=== PATIENT | female | born 1965 | race Caucasian/White ===

== ENCOUNTER 2020-05-30 09:03 | Outpatient (REF) | payer MEDICARE, MEDICAID, SELFPAY ==
[2020-05-30 11:03] LABS: MANUAL DIFF FLAG NO
[2020-05-30 11:16] LABS: Basophils Absolute Auto 0.1 X10*3/uL (0.0-0.2); Basophils Percent Auto 0.9 % (0-2); Eosinophils Absolute Auto 0.1 X10*3/uL (0.0-0.4); Hematocrit 40.4 % (37-47); Hemoglobin 12.8 g/dl (12.0-16.0); Imm Gran Abs Auto 0.02 X10*3/uL (0.00-0.03); Imm Gran Pct Auto 0.3 % (0.0-0.4); Lymphocytes Absolute Auto 2.6 X10*3/uL (1.2-4.9); Mean Corpuscular HGB Conc 31.7 g/dl (31.0-35.0); Mean Corpuscular Hemoglobin 26.5 pg (27.0-33.0); Mean Corpuscular Volume 83.6 fL (80-98); Mean Platelet Volume 12.9 fL (9.4-12.3); Monocytes Absolute Auto 0.4 X10*3/uL (0.1-1.2); Monocytes Percent Auto 5.2 % (2-11); Neutrophils Absolute Auto 4.7 X10*3/uL (2.0-8.3); Neutrophils Percent Auto 59.6 % (45-73); Platelet Count 248 X10*3/uL (160-400); Red Blood Count 4.83 X10*6/uL (4.20-5.50); Red Cell Distribution Width 12.9 % (11.0-16.0); White Blood Count 7.9 X10*3/uL (4.8-10.8)
[2020-05-30 11:44] LABS: Alanine Aminotransferase 44 U/L (0-31); Albumin Level 4.3 g/dL (3.5-5.0); Alkaline Phosphatase 93 U/L (39-117); Anion Gap 11 (12-20); Aspartate Amino Transferase 29 U/L (5-31); Bilirubin Total 0.3 mg/dL (0.0-1.0); Blood Urea Nitrogen 8 mg/dL (9-16); Calcium 8.5 mg/dL (8.4-10.2); Carbon Dioxide 31 mmol/L (22-29); Chloride 99 mmol/L (96-108); Cholesterol 168 mg/dL; Estimated Glomerular Filt Rate > 60; Glucose Fasting 124 mg/dL (60-99); HDL Cholesterol 36 mg/dL; LDL Cholesterol Calculated 118 mg/dl; Potassium 3.9 mmol/l (3.3-5.1); Sodium 137 mmol/L (135-145); Total Protein 7.8 g/dL (6.5-8.0); Triglycerides 71 mg/dL
[2020-05-30 11:46] LABS: Estimated Average Glucose 192 mg/dL; Hemoglobin A1c % 8.3 %
[2020-05-30 12:22] LABS: Microalbum/Creatinine Ratio Ur 10.6 ug/mg cr
== END 2020-05-30 09:04 | disposition home or self-care (01) ==
LOC: HO.HMGCLDS 09:03
PROVIDERS: PCP Internal Medicine; Visit Provider Internal Medicine
DX: I10 Essential (primary) hypertension (principal); E11.65 Type 2 diabetes mellitus with hyperglycemia; E78.2 Mixed hyperlipidemia; R80.0 Isolated proteinuria
CPT/HCPCS: 36415; 80053; 80061; 82043; 83036; 85025

== ENCOUNTER 2021-04-06 08:38 | Outpatient (REF) | payer MEDICARE, MEDICAID, SELFPAY ==
[2021-04-06 11:44] LABS: MANUAL DIFF FLAG NO
[2021-04-06 11:55] LABS: Basophils Absolute Auto 0.1 X10*3/uL (0.0-0.2); Basophils Percent Auto 0.9 % (0-2); Eosinophils Absolute Auto 0.1 X10*3/uL (0.0-0.4); Eosinophils Percent Auto 1.3 % (0-4); Hematocrit 40.9 % (37.0-47.0); Hemoglobin 13.1 g/dl (12.0-16.0); Imm Gran Abs Auto 0.02 X10*3/uL (0.00-0.03); Imm Gran Pct Auto 0.2 % (0.0-0.4); Lymphocytes Absolute Auto 2.5 X10*3/uL (1.2-4.9); Lymphocytes Percent Auto 29.8 % (20-40); Mean Corpuscular Hemoglobin 26.9 pg (27.0-33.0); Mean Platelet Volume 12.9 fL (9.4-12.3); Monocytes Absolute Auto 0.4 X10*3/uL (0.1-1.2); Neutrophils Absolute Auto 5.3 x10*3/uL (2.0-8.3); Neutrophils Percent Auto 62.8 % (45-73); Platelet Count 236 X10*3/uL (160-400); Red Blood Count 4.87 X10*6/uL (4.20-5.50); Red Cell Distribution Width 12.9 % (11.0-16.0); White Blood Count 8.5 X10*3/uL (4.8-10.8)
[2021-04-06 12:07] LABS: Alanine Aminotransferase 36 U/L (0-31); Albumin Level 4.4 g/dL (3.5-5.0); Alkaline Phosphatase 86 U/L (39-117); Anion Gap 15 (12-20); Aspartate Amino Transferase 29 U/L (5-31); Bilirubin Total 0.7 mg/dL (0.0-1.0); Blood Urea Nitrogen 9 mg/dL (9-16); Calcium 9.1 mg/dL (8.4-10.2); Carbon Dioxide 27 mmol/L (22-29); Chloride 101 mmol/L (96-108); Cholesterol 146 mg/dL; Estimated Glomerular Filt Rate > 60; Glucose Random 118 mg/dL (60-115); HDL Cholesterol 35 mg/dL; LDL Cholesterol Calculated 90 mg/dl; Potassium 4.2 mmol/L (3.3-5.1); Sodium 139 mmol/L (135-145); Total Protein 8.2 g/dL (6.5-8.0); Triglycerides 106 mg/dL
[2021-04-06 12:14] LABS: Estimated Average Glucose 194 mg/dL; Hemoglobin A1c % 8.4 %
[2021-04-06 12:44] LABS: Creatinine Urine 178.23 mg/dL; Microalbum/Creatinine Ratio Ur 11.7 ug/mg cr
== END 2021-04-06 08:39 | disposition home or self-care (01) ==
LOC: HO.HMGCLDS 08:38
PROVIDERS: PCP Internal Medicine; Visit Provider Internal Medicine
DX: E11.9 Type 2 diabetes mellitus without complications (principal); E78.00 Pure hypercholesterolemia, unspecified; I10 Essential (primary) hypertension; J30.89 Other allergic rhinitis; R80.0 Isolated proteinuria
CPT/HCPCS: 36415; 80053; 80061; 82043; 83036; 85025

== ENCOUNTER 2021-07-14 08:28 | Outpatient (REF) | payer MEDICARE, MEDICAID, SELFPAY ==
[2021-07-14 11:57] LABS: Estimated Average Glucose 209 mg/dL; Hemoglobin A1c % 8.9 %
[2021-07-14 12:17] LABS: Thyroid Stimulating Hormone 0.87 uIU/mL (0.32-4.0)
[2021-07-14 12:28] LABS: Alanine Aminotransferase 26 U/L (0-31); Albumin Level 4.1 g/dL (3.5-5.0); Alkaline Phosphatase 91 U/L (39-117); Anion Gap 14 (12-20); Aspartate Amino Transferase 19 U/L (5-31); Bilirubin Total 0.6 mg/dL (0.0-1.0); Blood Urea Nitrogen 8 mg/dL (9-16); Calcium 9.2 mg/dL (8.4-10.2); Carbon Dioxide 28 mmol/L (22-29); Chloride 101 mmol/L (96-108); Cholesterol 129 mg/dL; Estimated Glomerular Filt Rate > 60; Glucose Random 152 mg/dL (60-115); HDL Cholesterol 31 mg/dL; LDL Cholesterol Calculated 82 mg/dl; Potassium 4.2 mmol/L (3.3-5.1); Sodium 139 mmol/L (135-145); Total Protein 7.8 g/dL (6.5-8.0); Triglycerides 81 mg/dL
== END 2021-07-14 08:29 | disposition home or self-care (01) ==
LOC: HO.HMGCLDS 08:28
PROVIDERS: Visit Provider Internal Medicine
DX: E11.9 Type 2 diabetes mellitus without complications (principal); E78.00 Pure hypercholesterolemia, unspecified; I10 Essential (primary) hypertension; L65.0 Telogen effluvium
CPT/HCPCS: 36415; 80053; 80061; 83036; 84443

== ENCOUNTER 2021-10-12 10:50 | Outpatient (REF) | payer MEDICARE, MEDICAID, SELFPAY ==
[2021-10-12 13:59] LABS: Estimated Average Glucose 206 mg/dL; Hemoglobin A1c % 8.8 %
[2021-10-12 14:03] LABS: Alanine Aminotransferase 34 U/L (0-31); Albumin Level 4.2 g/dL (3.5-5.0); Alkaline Phosphatase 96 U/L (39-117); Anion Gap 13 (12-20); Aspartate Amino Transferase 21 U/L (5-31); Bilirubin Total 0.6 mg/dL (0.0-1.0); Blood Urea Nitrogen 8 mg/dL (9-16); Calcium 9.3 mg/dL (8.4-10.2); Carbon Dioxide 27 mmol/L (22-29); Chloride 102 mmol/L (96-108); Cholesterol 158 mg/dL; Estimated Glomerular Filt Rate > 60; Glucose Random 165 mg/dL (60-115); HDL Cholesterol 34 mg/dL; LDL Cholesterol Calculated 109 mg/dl; Potassium 4.1 mmol/L (3.3-5.1); Sodium 138 mmol/L (135-145); Triglycerides 78 mg/dL
[2021-10-12 14:22] LABS: Thyroid Stimulating Hormone 0.55 uIU/mL (0.32-4.0)
== END 2021-10-12 10:51 | disposition home or self-care (01) ==
LOC: HO.HMGCLDS 10:50
PROVIDERS: Visit Provider Internal Medicine
DX: Z00.00 Encounter for general adult medical examination without abnormal findings (principal); E03.9 Hypothyroidism, unspecified; E11.65 Type 2 diabetes mellitus with hyperglycemia
CPT/HCPCS: 36415; 80053; 80061; 83036; 84443

== ENCOUNTER 2022-02-11 10:28 | Outpatient (REF) | payer MEDICARE, SELFPAY | END 2022-02-11 10:29 | disposition home or self-care (01) | LOC: HO.10HDL 10:28 | PROVIDERS: Visit Provider Otolaryngology | DX: J30.89 Other allergic rhinitis (principal) | CPT/HCPCS: 36415; 82785; 86003 ==

== ENCOUNTER 2022-05-06 08:29 | Outpatient (REF) | payer MEDICARE, MEDICAID, SELFPAY ==
[2022-05-06 09:23] LABS: Estimated Average Glucose 197 mg/dL; Hemoglobin A1c % 8.5 %
[2022-05-06 09:43] LABS: Alanine Aminotransferase 29 U/L (0-31); Albumin Level 4.4 g/dL (3.5-5.0); Alkaline Phosphatase 97 U/L (39-117); Anion Gap 14 (12-20); Aspartate Amino Transferase 20 U/L (5-31); Bilirubin Total 0.6 mg/dL (0.0-1.0); Blood Urea Nitrogen 9 mg/dL (9-16); Calcium 9.6 mg/dL (8.4-10.2); Carbon Dioxide 28 mmol/L (22-29); Chloride 101 mmol/L (96-108); Cholesterol 200 mg/dL; Estimated Glomerular Filt Rate > 60; Glucose Random 138 mg/dL (60-115); HDL Cholesterol 35 mg/dL; LDL Cholesterol Calculated 141 mg/dl; Potassium 4.8 mmol/L (3.3-5.1); Sodium 138 mmol/L (135-145); Total Protein 8.1 g/dL (6.5-8.0); Triglycerides 122 mg/dL
== END 2022-05-06 08:30 | disposition home or self-care (01) ==
LOC: HO.LAB 08:29
PROVIDERS: PCP Internal Medicine; Visit Provider Internal Medicine
DX: E11.65 Type 2 diabetes mellitus with hyperglycemia (principal); E78.00 Pure hypercholesterolemia, unspecified; I10 Essential (primary) hypertension; R80.0 Isolated proteinuria
CPT/HCPCS: 36415; 80053; 80061; 83036

== ENCOUNTER → 2024-08-06 10:15 | Outpatient (BNVA) | payer MEDICARE, MEDICAID, SELFPAY | PROVIDERS: PCP Physician Assistant; Visit Provider Physician Assistant | DX: E11.65 Type 2 diabetes mellitus with hyperglycemia (principal); I10 Essential (primary) hypertension; Z87.892 Personal history of anaphylaxis | CPT/HCPCS: 83036; 99202 ==

== ENCOUNTER 2024-08-06 10:18 | Outpatient (AMB) | payer MEDICARE, MEDICAID, SELFPAY ==
--- NOTE | 2024-08-06 10:16 | A.OFFPC_ITS ---
Vital Signs 08/06/24 10:21 Height 5 ft 1 in Weight 140 lb 4 oz BMI 26.5 BP 130/68 Blood Pressure Location Lt brachial Position Sitting Pulse 80 Pulse Source Pulse Oximeter Temp 97.3 F Temp Source Temporal Artery Scan Pulse Oximetry (%) 97 Oxygen Delivery Method Room Air Intake Visit Reasons: New Patient Intake Note: Patient is a new patient establishing care for hypertension and type 2 diabetes. They are transferring care from Dr. Cheryle Reynolds MD, at [facility] in [place]. Medical records have been received today. The patient saw their previous doctor only twice and has not seen a primary care provider for approximately eight months. Aging Room Hand Required: Yes Aging Room Hand Language: Workers Compensation Legal Secretary Name: used tablet-ID #-[id number] Accompanied by: Self / Same As Patient Allergies apple [APPLE] Allergy (Severe, Verified 08/06/24 10:38) ANAPHYLAXIS Penicillins [PENICILLINS] Allergy (Intermediate, Verified 08/06/24 10:38) HIVES Nuts Allergy (Intermediate, Uncoded 08/06/24 10:38) Itchy throat. Medication List - Last Reconciled 08/06/24 by David Hoang PA-C blood sugar diagnostic (OneTouch Ultra Test strips) As directed calcipotriene 0.005% topical calcipotriene-betamethasone 0.005-0.064 % (Enstilar) topical DAILY PRN clobetasol 0.05% topical epinephrine 0.3 mg IM Q10M PRN fluticasone propionate 50 mcg/actuation 1 spray intranasal DAILY glimepiride mg PO DAILY ketoconazole 2% topical lancets (OneTouch Delica Plus Lancet) As directed loratadine (Claritin) 10 mg PO DAILY losartan mg PO DAILY metformin mg PO BID pimecrolimus 1% appl topical BID Tobacco use date assessed: 08/06/24 HPI New Patient HPI Details Patient is a 59-year-old female here today for a new patient visit. Patient is Liberian-speaking only thus use a offsite spanish interpreter/translator. [facility] PCP [facility] at the [facility]. Patient has a past medical history significant for type 2 diabetes, hypertension, allergies. .. Type 2 diabetes: Patient's type 2 diabetes has not been the best controlled. Today's A1c at 8.6. She continues on metformin a 1000 b.i.d.. She does check her sugars and does report after she eats her sugars are nearly 300. PLAN: Will add Ozempic 0.25 mg weekly for better glycemic control and cardiovascular risk reduction. .. Hypertension: Blood pressure acceptable today in office. She continues on losartan 50 mg daily with good effect. Laboratory Tests 10/12/21 05/06/22 11:00 08:46 Hemoglobin A1c % 8.8 8.5 [facility] Medical History Hypertension Type II diabetes mellitus Family History (Updated 08/06/24 @ 10:52 by David Hoang PA-C) Sister Colon cancer Social History (Updated 08/06/24 @ 10:54 by David Hoang PA-C) Alcohol intake: never Patient Tobacco Use Status: Never used Tobacco Current occupational status: disabled Review of Systems Const Denies headache(s) Eyes Denies loss of vision ENT Denies vertigo, Denies dizziness, Denies headache(s) and Denies sore throat Card Denies chest pain, Denies leg edema and Denies lightheadedness Resp Denies cough, Denies hemoptysis and Denies wheezing GI Denies abdominal pain, Denies melena, Denies constipation, Denies diarrhea and Denies vomiting Denies urinary frequency, Denies dysuria and Denies urinary urgency Musc Denies arthralgias, Denies joint swelling, Denies numbness and Denies tingling Neuro Denies Abnormal speech present, Denies behavioral changes, Denies vertigo, Denies dizziness, Denies headache(s), Denies loss of vision, Denies memory loss, Denies numbness and Denies tingling Psych Denies anxiety, Denies behavioral changes, Denies depression, Denies memory loss and Denies panic attacks Phill/Lymph Denies easy bleeding and Denies easy bruising Aller/Immun Denies wheezing Physical exam (Primary Care) Vital Signs: Last Vital Signs Temp 97.3 F 08/06/24 10:21 Pulse 80 08/06/24 10:21 BP 130/68 08/06/24 10:21 Pulse Ox 97 08/06/24 10:21 Oxygen Delivery Method Room Air 08/06/24 10:21 BMI result Body Mass Index 26.5 Tobacco/Smoking Status: Tobacco use Status Tobacco use date assessed 08/06/24 08/06/24 10:36 Patient Tobacco Use Status Never used Tobacco 08/06/24 10:36 Const General: healthy appearing, no acute distress, alert and awake Nutritional Appearance: well nourished Orientation/consciousness: oriented to person, oriented to place and oriented to time HENMT Ears: TM's normal bilaterally General nose exam: Normal nasal mucous membranes and turbinates present Eyes Conjunctivae: conjunctivae normal Sclerae: sclerae normal Pupils: Equal, round and reactive pupils present Neck Neck: Yes no lymphadenopathy and Yes no JVD Thyroid: Thyroid normal Carotids: no bruits Resp Effort & Inspection: normal respiratory effort and not tachypneic Auscultation: no crackles, no rales, no rhonchi and no wheezes Cardio Rate: regular rate Rhythm: regular rhythm Heart sounds: no murmurs and normal S1 and S2 GI Palpation (GI): Soft to palpation, nontender, no hepatomegaly and no splenomegaly Auscultation: normal bowel sounds Skin General skin exam: no rashes or lesions noted and dry skin Neuro General: oriented to person, oriented to place and oriented to time Cranial nerves: Yes Equal, round and reactive pupils present Speech: No Abnormal speech present Gait exam (Neuro): Normal gait present Motor exam (neuro): no tremor noted Extrem Right upper extremity: full ROM Left upper extremity: full ROM Right lower extremity: full ROM; no edema Left lower extremity: full ROM; no edema Psych Mental Status: mental status grossly normal Speech and movement: Normal speech and movement present Affect: normal affect Attitude: cooperative Thought process: Normal thought process present Results AMB Hemoglobin A1c AMB Hemoglobin A1c 8.6 % Last Edit by DEJON Acuna on 08/06/24 10:50 Coding Level of Care Code New Pt Level 4 (83281) Diagnoses Type 2 diabetes mellitus with hyperglycemia, without long-term current use of insulin E11.65 Diabetes mellitus complication status: with hyperglycemia Diabetes mellitus long term acute care registered nurse insulin use: without skilled nursing use Primary hypertension I10 Hypertension type: primary hypertension History of anaphylaxis Z87.892 Encounter for screening mammogram for malignant neoplasm of breast Z12.31 Breast cancer screening modality: mammogram Cervical cancer screening Z12.4 Assessment & Plan Assessment & Plan (1) Type II diabetes mellitus: Code(s): E11.9 - Type 2 diabetes mellitus without complications Category: Medical Qualifiers: Diabetes mellitus complication status: with hyperglycemia Diabetes mellitus skilled nursing insulin use: without long term acute care registered nurse use Qualified Code(s): E11.65 - Type 2 diabetes mellitus with hyperglycemia Plan: Patient's type 2 diabetes suboptimally controlled. She continues with metformin and glipizide. She is willing to try Ozempic for better glycemic control. Will follow up in 3 months and recheck A1c. (2) Hypertension: Code(s): I10 - Essential (primary) hypertension Category: Medical Qualifiers: Hypertension type: primary hypertension Qualified Code(s): I10 - Essential (primary) hypertension Plan: Patient's blood pressure acceptable today in office. Will continue her current dose of losartan with goal blood pressure to remain below 140/90. (3) History of anaphylaxis: Code(s): Z87.892 - Personal history of anaphylaxis Category: Medical Plan: Patient has a history of anaphylaxis in would like an EpiPen available to her. Her previous EpiPen had . (4) Breast cancer screening: Code(s): Z12.39 - Encounter for other screening for malignant neoplasm of breast Category: Medical Qualifiers: Breast cancer screening modality: mammogram Qualified Code(s): Z12.31 - Encounter for screening mammogram for malignant neoplasm of breast Plan: Willing to get mammogram (5) Cervical cancer screening: Code(s): Z12.4 - Encounter for screening for malignant neoplasm of cervix Category: Medical Plan: Needs up-to-date Pap screening Orders: Orders Complete Blood Count no Diff Today E11.9 - Type 2 diabetes mellitus without complications Lipid Panel Today E11.9 - Type 2 diabetes mellitus without complications MM screening mammo BI Today Z12.31 - Encounter for screening mammogram for malignant neoplasm of breast, Z12.39 - Encounter for other screening for malignant neoplasm of breast Microalbumin, Random (w Creat) Today E11.9 - Type 2 diabetes mellitus without complications Comprehensive [place]. 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 Z12.4 - Encounter for screening for malignant neoplasm of cervix Medications: New glimepiride 1 mg PO DAILY 90 days 90 tabs 1RF E11.9 - Type 2 diabetes mellitus without complications lancets (OneTouch Delica Plus Lancet) testing twice per day per day 100 ea 3RF E11.9 - Type 2 diabetes mellitus without complications semaglutide (Ozempic) 0.25 mg (0.368 mL) subcut QWEEK 4 weeks 3 mL 3RF E11.65 - Type 2 diabetes mellitus with hyperglycemia loratadine (Claritin) 10 mg PO DAILY 90 days 90 tabs 2RF Z87.892 - Personal history of anaphylaxis epinephrine for 2 doses 0.3 mg (0.3 mL) IM Q10M 30 days PRN 2 ea 1RF anaphylaxis Z87.892 - Personal history of anaphylaxis blood pressure monitor As directed 1 ea 0RF E11.9 - Type 2 diabetes mellitus without complications metformin 1,000 mg PO BID 90 days 180 tabs 1RF E11.9 - Type 2 diabetes mellitus without complications losartan 50 mg PO DAILY 90 days 90 tabs 1RF I10 - Essential (primary) hypertension blood sugar diagnostic (SocialThreaderTouch Ultra Test strips) testing twice per day 100 ea 2RF E11.9 - Type 2 diabetes mellitus without complications glimepiride 1 mg PO DAILY 90 days 90 tabs 1RF E11.9 - Type 2 diabetes mellitus without complications metformin 1,000 mg PO BID 90 days 180 tabs 1RF E11.9 - Type 2 diabetes mellitus without complications losartan 50 mg PO DAILY 90 days 90 tabs 1RF I10 - Essential (primary) hypertension
[2024-08-06 10:21] VITALS: BP 130/68; PULSE 80; TEMP 36.3; O2SAT 97; BMI 26.5
--- OUTSIDE RECORDS SUMMARY | 2024-08-06 11:27 | XMS_ITS ---
Author Name [facility] Organization Unknown Care Team Organization Name Specialty Phone Email Start Date End [facility]
--- OUTSIDE RECORDS SUMMARY | 2024-08-06 11:27 | XMS_ITS | Clinical Summary ---
Author Organization [facility] [address] [facility] Address [address] [facility] [place] [address] Phone Care Team Providers Care Internet Specialist Name Role Phone Cheryle Mensah MD Primary Care Prov ider Allergies Active Allergy Reactions Criticality Noted Date Comments Fruit Extracts Anaphylaxis High 05/06/2022 Apples-itching Cherries-itching Penicillins Hives,Itching 05/06/2022 Medications diphenhydrAMIN E (BENADRYL) 50 mg capsule Take 1 capsule (50 mg total) by mouth every 6 (six) hours if needed. Active azelastine (OPTIVAR) 0.05 % ophthalmic solution Administer 1 drop into both eyes 2 (two) times a day. Active OneTouch Ultra Test test strip 1 each by Other route if needed. 10/27/19 24 Active glimepiride (AMARYL) 1 mg tablet Take 1 tablet (1 mg total) by mouth 1 (one) time each day before breakfast. 90 each 1 05/02/20 24 Active losartan (COZAAR) 50 mg tablet Take 1 tablet (50 mg total) by mouth 1 (one) time each day. 90 each 1 05/02/20 24 Active triamcinolone (NASACORT) 55 mcg nasal inhaler Administer 2 sprays into each nostril 1 (one) time each day. 10.8 mL 1 05/02/20 24 Active levocetirizine (XYZAL) 5 mg tablet Take 1 tablet (5 mg total) by mouth 1 (one) time each day in the evening. 90 each 1 05/02/20 24 Active lancets lancets Test twice daily DX E11.9 03/22/20 23 Active blood-glucose meter misc DX?E11.9 03/22/20 23 Active EPINEPHRINE BASE, REFILL, INHL Inject?as directed. Active metFORMIN (GLUCOPHAGE) 1,000 mg tablet TAKE 1 TABLET BY MOUTH TWICE DAILY WITH MEALS 180 tablet 1 07/10/19 25 Active metFORMIN (GLUCOPHAGE) 1,000 mg tablet Take 1 tablet (1,000 mg total) by mouth 2 (two) times a day with meals. 90 each 1 05/02/20 24 025 Discontinued Active Problems Problem Noted Date Diagnosed Date Overweight (BMI 25.0-29.9) 05/31/2023 Hypertension 12/24/2022 Type 2 diabetes mellitus wit hout complication, without long-term current use of insulin 12/24/2022 Immunizations Name Administration Dates Next Due Moderna SARS-CoV-2 COVID-19, mRNA, LNP-S, preservative free 07/16/2021,04/15/2021 Pneumococcal conjugate 20 va lent (Prevnar 20, PCV 20) 2mo and older 02/18/2023 Td Tetanus diptheria (Tdvax) 7yo and older 02/17 Tdap Tetanus diptheria acell ular pertussis (Boostrix; Adacel) 7yo and older 11/05/2021 Surgical History Surgery Date Site/Laterality Comments TUBAL LIGATION PROCEDURE: HISTORICAL TUBAL LIGATION BREAST REDUCTION Bilateral PROCEDURE: [place] BREAST REDUCTION HAND SURGERY 2010 Right PROCEDURE: HISTORICAL HAND SURGERY; COMMENT: work accident Medical History Medical History Date Comments HTN (hypertension) DX:HTN (hyper tension) Type 2 diabetes mellitus wit hout complications (CMS/HCC) DX:Type 2 diabetes mellitus without complications (HCC) Psoriasis DX:Psoriasis Mixed hyperlipidemia DX:Mixed hy perlipidemia Family History Medical History Relation Name Comments No Known Problems Father No Known Problems Mother Colon cancer Sister Ovarian cancer Sister cancer first started in ovaries, per sister negative genetic Uterine cancer Sister Breast cancer Neg Hx Relation Name Status Comments Father Mother Sister Social History Tobacco Use Types Packs/Day Years Used Date Smoking Tobacco: Never Smokeless Tobacco: Never Tobacco Cessation:Counseling Given: Not Answered Alcohol Use Standard Drinks/Week Comments Not Currently 0 (1 standard drink = 0.6 oz pur e alcohol) Comments Unknown Sex and Gender Information Value Date Recorded Sex Assigned at Not on file Legal Sex Female 5:36 AM EST Gender Identity Not on file Sexual Orientation Not on file Obstetrics History Last Filed Vital Signs Vital Sign Reading Time Taken Comments Blood Pressure 135/77 05/02/2024 10:48 AM EST Pulse 86 05/02/2024 10:48 AM EST Temperature 36.1 ??C (97 ??F) 05/02/2024 10:48 AM EST Respiratory Rate 16 05/02/2024 10:48 AM EST Oxygen Saturation 96% 05/02/2024 10:48 AM EST Inhaled Oxygen Concentration - - Weight 64.1 kg (141 lb 6.4 oz) 05/02/2024 10:48 AM EST Height 154.9 cm (5' 1 ) 05/02/2024 10:48 AM EST Body Mass Index 26.72 05/02/2024 10:48 AM EST Plan of Treatment Health Maintenance Due Date Last Done Comments Diabetes: Annual Foot Exam 1975 Diabetes: Annual Retina Eye Exam 1975 Hepatitis B Vaccines (1 of 3 - 19+ 3-dose series) 01/29/1984 Zoster Vaccines (1 of 2) 2015 Colorectal Cancer Screening: Colonoscopy 11/16/2022 Depression Screening 11/16/2022 HIV Screening 11/16/2022 Social Influencers of Health Screening 11/16/2022 Medicare Annual Wellness Visit 05/11/2023 05/11/2022 Diabetes: Blood Sugar Control Test (HGBA1C) 08/19/2023 02/18/2023 Diabetes: Annual GFR (Glomerular Filtration Rate) 12/11/2023 12/10/2022 Hypertension/CHF/CAD Annual BMP Blood Test 12/11/2023 12/10/2022 COVID-19 Vaccine ( season) 2024 07/16/2021, 04/24/2021, 04/15/2021, Additional history exists Influenza Vaccine (#1) 2024 Diabetes: Annual Urine Albumin-Creatinine Ratio (uACR) 02/19/2024 02/18/2023 Breast Cancer Screening 05/19/2025 05/19/2023, 05/07 Cervical Cancer Screening: HPV 05/06/2027 05/06/2022 Cholesterol Screening (Lipid Panel) 12/11/2027 12/10/2022 DTaP,Tdap,and Td Vaccines (3 - Td or Tdap) 11/06/2031 11/05/2021, 02/17/2019 RSV Immunization Patients 60+ Years Old (1 - 1-dose 75+ series) 01/29/2040 Hepatitis C Screening Completed 12/10/2022 Pneumococcal Vaccine: 50+ Years Completed 02/18/2023 Pneumococcal Vaccine: Pediatrics (0 to 5 Years) and At-Risk Patients (6 to 64 Years) Completed 02/18/2023 HIB Vaccines Aged Out No longer eligi ble based on patient's age to complete this topic HPV Vaccines Aged Out No longer eligi ble based on patient's age to complete this topic Hepatitis A Vaccines Aged Out No long er eligible based on patient's age to complete this topic IPV Vaccines Aged Out No longer eligi ble based on patient's age to complete this topic MMR Vaccines Aged Out No longer eligi ble based on patient's age to complete this topic Meningococcal ACWY Vaccine Aged Out N o longer eligible based on patient's age to complete this topic Meningococcal B Vacine Aged Out No lo nger eligible based on patient's age to complete this topic RSV Immunization Patients Under 20 months Aged Out No longer eligible based on patient's age to complete this topic Varicella Vaccines Aged Out No longer eligible based on patient's age to complete this topic Procedures Procedure Name Priority Date/Time Associated Diagnosis Comments SCREENING MAMMOGRAPHY BI 2-VIEW BREAST INC CAD Routine 05/19/2023 9:56 AM EST Encounter for screening mammogram for malignant neoplasm of breast URINE ALBUMIN CREATININE RATIO Routine 02/18/2023 HEMOGLOBIN A1C Routine 02/18/2023 HEPATITIS C SCREENING Routine 12/10/2022 ANNUAL BMP BLOOD TEST Routine 12/10/2022 LIPID PANEL Routine 12/10/2022 HPV Routine 05/06/2022 from Last 3 Months or Most Recently Relevant to Health Maintenance Results * SCREENING MAMMOGRAPHY BI 2-VIEW BREAST INC CAD (05/19/2023 9:56 AM EST) Anatomical Region Laterality Modality Radiographic Esperanza ging 05/07/2022 9:19 AM EST Narrative 05/19/2023 4:22 PM EST This is a summary report. The complete report is available in the patient's medical record. If you cannot access the medical record, please contact the sending organization for a detailed fax or copy. Full field digital screening tomosynthesis mammography, reviewed with CAD and compared to previous. The breast tissue is heterogeneously dense, limiting sensitivity. No suspicious mass, architectural distortion or suspicious calcifications are identified. IMPRESSION: : Dense breast tissue, limiting the sensitivity of mammography. No mammographic evidence of malignancy. BIRADS 1-Negative; N. 5 year breast cancer risk assessment 0.8 % Lifetime breast cancer risk assessment 4.8 % Breast cancer risk category Low (<15%) Procedure Note Giselle Ariza MD - 06/28/2023 This is a summary report. The complete report is available in thepatient's medical record. If you cannot access the medical record, pleasecontact the sending organization for a detailed fax or copy. Full field digital screening tomosynthesis mammography, reviewed with CADand compared to previous. The breast tissue is heterogeneously dense,limiting sensitivity. No suspicious mass, architectural distortion orsuspicious calcifications are identified. IMPRESSION: : Dense breast tissue, limiting the sensitivity of mammography. Nomammographic evidence of malignancy. BIRADS 1-Negative; N. 5 year breast cancer risk assessment 0.8 % Lifetime breast cancer risk assessment 4.8 % Breast cancer risk category Low (<15%) Aleah Patino CNM IMG XR PROCEDURES Final Result * Urine Albumin Creatinine Ratio (02/18/2023) Urine Albumin Creatinine Ratio Abstracted Historical Provider HEALTH MAINTENANCE Final Result * (ABNORMAL) Hemoglobin A1c (02/18/2023) Hemoglobin A1C 9.1(A) <=6.5 % Blood Venous blood specimen / Unknown Result [facility] Provider LAB BLOOD ORDERABLES Ayaka l Result * Annual BMP Blood Test (12/10/2022) [facility] Annual BMP Blood Test Abstracted Result [facility] Provider HEALTH MAINTENANCE Final Result * Hepatitis C Screening (12/10/2022) [facility] Hepatitis C Screening Abstracted Result [facility] Provider HEALTH MAINTENANCE Final Result * (ABNORMAL) Lipid panel (12/10/2022) [facility] LDL/HDL Ratio 4 0 - 4 Triglycerides 90 0 - 150 mg/dL Cholesterol 163 0 - 200 mg/dL HDL 39(A) >=40 mg/dL LDL Cholesterol 106(A) 0 - 100 mg/dL Blood Venous blood specimen / Unknown Result [facility] Provider LAB BLOOD ORDERABLES Ayaka l Result * Cervical Cancer Screening: HPV (05/06/2022) [facility] Cervical Cancer Screening: HPV No interpreta tion,abstr acted Result [facility] Provider HEALTH MAINTENANCE Final Result from Last 3 Months or Most Recently Relevant to Health Maintenance Additional Health Concerns Infection Onset Date Last Indicated ESBL 05/02/2024 05/02/2024 [place] [facility] [place] [id number] MEDICA[place] - [place]ICARE Care Teams Internet Specialist Relationship Specialty Start Date End Date Cherlye Mensah MD [address] [place] [id number] PCP - General Internal Medicine 03/08/22
== END 2024-08-06 11:21 | disposition home or self-care (01) ==
PROVIDERS: PCP Physician Assistant; Visit Provider Physician Assistant
DX: E11.65 Type 2 diabetes mellitus with hyperglycemia (principal); I10 Essential (primary) hypertension; Z87.892 Personal history of anaphylaxis; Z12.31 Encounter for screening mammogram for malignant neoplasm of breast; Z12.4 Encounter for screening for malignant neoplasm of cervix

== ENCOUNTER 2024-08-27 11:26 | Outpatient (REF) | payer MEDICARE, MEDICAID, SELFPAY ==
--- OUTSIDE RECORDS SUMMARY | 2024-08-27 13:48 | XMS_ITS | Clinical Summary ---
Author Organization [facility] [address] [place] [address] Address [address] [facility] [place] [address] Phone Care Team Providers Care Habitat Biologist Name Role Phone Cheryle Mensah MD Primary [...] eyes 2 (two) times a day. Active glimepiride (AMARYL) 1 mg tablet Take [...] MEALS 180 tablet 1 07/10/19 25 Active OneTouch Ultra Test test strip USE TO CHECK BLOOD SUGARS TWO TIMES DAILY 100 strip 5 08/22/19 25 Active OneTouch Ultra Test test strip 1 each by Other route if needed. 10/27/19 24 025 Discontinued Active Problems Problem Noted [...] HISTORICAL TUBAL LIGATION BREAST REDUCTION Bilateral PROCEDURE: [place] BREAST REDUCTION HAND SURGERY 2010 Right PROCEDURE: HISTORICAL HAND SURGERY; COMMENT: work accident Medical History Medical History Date Comments HTN (hypertension) DX:HTN (hyper tension) Type 2 diabetes mellitus wit hout complications DX:Type 2 diabetes mellitus without complications (HCC) [...] 2024 07/16/2021, 04/24/2021, 04/15/2021, Additional history exists Diabetes: Annual Urine Albumin-Creatinine Ratio (uACR) 02/19/2024 02/18/2023 Influenza Vaccine (Season Ended) 2025 Breast Cancer Screening 05/19/2025 05/19/2023, 05/07 Cervical Cancer Screening: HPV 05/06/2027 05/06/2022 Cholesterol Screening (Lipid Panel) 12/11/2027 12/10/2022 DTaP,Tdap,and Td Vaccines (3 - Td or Tdap) 11/06/2031 11/05/2021, 02/17/2019 RSV Immunization Adult Patients (1 - 1-dose 75+ series) 01/29/2040 Hepatitis [...] % Breast cancer risk category Low (<15%) Result [facility] Aleah Patino CNM IMG XR PROCEDURES Final Result * Urine Albumin Creatinine Ratio (02/18/2023) Urine Albumin Creatinine Ratio Abstracted Result [facility] Historical Provider HEALTH MAINTENANCE Final Result * (ABNORMAL) Hemoglobin A1c (02/18/2023) Hemoglobin A1C 9.1(A) <=6.5 % Blood Venous blood specimen / Unknown Result [facility] Historical Provider LAB BLOOD ORDERABLES Yaaka l Result * Annual BMP Blood Test (12/10/2022) Pathologist [facility] Annual BMP Blood Test Abstracted [facility] Provider HEALTH MAINTENANCE Final Result * Hepatitis C Screening (12/10/2022) [facility] Hepatitis C Screening Abstracted [facility] Provider HEALTH MAINTENANCE Final Result * (ABNORMAL) Lipid panel (12/10/2022) [facility] LDL/HDL Ratio 4 0 - 4 Triglycerides 90 0 - 150 mg/dL Cholesterol 163 0 - 200 mg/dL HDL 39(A) >=40 mg/dL LDL Cholesterol 106(A) 0 - 100 mg/dL Blood Venous blood specimen / Unknown [facility] Provider LAB BLOOD ORDERABLES Ayaka l Result * Cervical Cancer Screening: HPV (05/06/2022) [facility] Cervical Cancer Screening: HPV No interpreta tion,abstr acted [facility] Provider HEALTH MAINTENANCE Final Result from Last 3 Months or Most Recently Relevant to Health Maintenance Additional Health Concerns Infection Onset Date Last Indicated ESBL 05/02/2024 05/02/[address] [place] [address] [place]ICA[place] - [place]ARE Care Teams Habitat Biologist Relationship Specialty Start Date End Date Cheryle Mensah MD [address] [place] [id number] PCP - General Internal Medicine 03/08/22
== END 2024-08-27 11:27 | disposition home or self-care (01) ==
LOC: HO.MAMMO 11:26
PROVIDERS: PCP Physician Assistant; Visit Provider Physician Assistant
DX: Z12.31 Encounter for screening mammogram for malignant neoplasm of breast (principal)
CPT/HCPCS: 77063; 77067

== ENCOUNTER → 2024-08-27 11:30 | Outpatient (BNV) | payer MEDICARE, MEDICAID, SELFPAY | PROVIDERS: PCP Physician Assistant; Visit Provider Internal Medicine | DX: Z12.31 Encounter for screening mammogram for malignant neoplasm of breast (principal) | CPT/HCPCS: 77063; 77067 ==

== ENCOUNTER 2024-10-01 09:16 | Outpatient (REF) | payer MEDICARE, MEDICAID, SELFPAY ==
--- NOTE | ~2024-10-01 | US_ITS ---
EXAMINATION: MM DIAGNOSTIC DIGITAL BREAST TOMOSYNTHESIS, LEFT Limited left breast ultrasound. CLINICAL INFORMATION: Call back from screening for focal asymmetry in the upper outer left breast posterior depth. COMPARISON: Mammography: Priors on PACS. TECHNIQUE: Digital breast tomosynthesis is performed in both the craniocaudal and mediolateral oblique views along with computer-aided detection (CAD). Synthesized 2D images are generated from the tomosynthesis. FINDINGS: The breasts are heterogeneously dense, which may obscure small masses (ACR BI-RADS breast composition Category c). Focal asymmetry in the upper outer breast persist on additional imaging projections. No suspicious calcifications or other abnormal findings. Targeted color Doppler ultrasound scanning in the upper outer quadrant demonstrates normal fibroglandular breast tissue. There is no sonographic abnormality. US/US breast LT limited mamm only IMPRESSION: Left: Focal asymmetry in the upper outer breast without sonographic correlate. This area could just represent normal dense fibroglandular breast tissue however 6 month follow-up left breast mammography is recommended for further evaluation of stability. ASSESSMENT: BI-RADS BI-RADS 3 - Probably benign finding(s) - 6 month follow-up suggested RECOMMENDATION: 6 Month F/U Results were provided to the patient at time of visit by the technologist. This patient's information was entered into a reminder system with a target due date for their next mammogram. Electronically signed by: Samantha Jackman DO 10/01/2024 12:02 PM YANNA
== END 2024-10-01 09:17 | disposition home or self-care (01) ==
LOC: HO.MAMMO 09:16
PROVIDERS: PCP Physician Assistant; Visit Provider Physician Assistant
DX: N64.89 Other specified disorders of breast (principal)
CPT/HCPCS: 76642; 77061; 77065

== ENCOUNTER → 2024-10-01 09:30 | Outpatient (BNV) | payer MEDICARE, MEDICAID, SELFPAY | PROVIDERS: PCP Physician Assistant; Visit Provider Internal Medicine | DX: R92.8 Other abnormal and inconclusive findings on diagnostic imaging of breast (principal) | CPT/HCPCS: 76642; 77065; G0279 ==

== ENCOUNTER 2024-10-29 09:39 | Outpatient (REF) | payer MEDICARE, MEDICAID, SELFPAY ==
--- OUTSIDE RECORDS SUMMARY | 2024-10-29 10:20 | XMS_ITS | Clinical Summary ---
Author Organization [facility] [address] [place] [address] [place] [address] [place] [phone] Phone Care Team Providers Care Bowling Teacher Name Role Phone Physician, No Pcp Primary Care Provider Unavaila ble Allergies Active Allergy Reactions Criticality Noted Date Comments Fruit Extracts Anaphylaxis High 05/06/2022 Apples-itching Cherries-itching Penicillins Hives,Itching 05/06/2022 Medications diphenhydrAMINE (BENADRYL) 50 mg capsule Take 1 capsule (50 mg total) by mouth every 6 (six) hours if needed. Active azelastine (OPTIVAR) 0.05 % ophthalmic solution Administer 1 drop into both eyes 2 (two) times a day. Active glimepiride (AMARYL) 1 mg tablet Take 1 tablet (1 mg total) by mouth 1 (one) time each day before breakfast. 90 each 1 4 Active losartan (COZAAR) 50 mg tablet Take 1 tablet (50 mg total) by mouth 1 (one) time each day. 90 each 1 4 Active triamcinolone (NASACORT) 55 mcg nasal inhaler Administer 2 sprays into each nostril 1 (one) time each day. 10.8 mL 1 4 Active levocetirizine (XYZAL) 5 mg tablet Take 1 tablet (5 mg total) by mouth 1 (one) time each day in the evening. 90 each 1 4 Active lancets lancets Test twice daily DX E11.9 3 Active blood-glucose meter misc DX?E11.9 3 Active EPINEPHRINE BASE, REFILL, INHL Inject?as directed. Active metFORMIN (GLUCOPHAGE) 1,000 mg tablet TAKE 1 TABLET BY MOUTH TWICE DAILY WITH MEALS 180 tablet 1 5 Active OneTouch Ultra Test test strip USE TO CHECK BLOOD SUGARS TWO TIMES DAILY 100 strip 5 5 Active Active Problems Problem Noted Date Diagnosed Date Overweight (BMI 25.0-29.9) 05/31/2023 Hypertension 12/24/2022 Type 2 diabetes mellitus wit hout complication, without long-term current use of insulin ([facility] V24, [facility] V28) 12/24/2022 Immunizations Name Administration Dates Next Due [...] HISTORICAL TUBAL LIGATION BREAST REDUCTION Bilateral PROCEDURE: [place] BREAST REDUCTION HAND SURGERY 2010 Right PROCEDURE: HISTORICAL HAND SURGERY; COMMENT: work accident Medical History Medical History Date Comments HTN (hypertension) DX:HTN (hyper tension) Type 2 diabetes mellitus wit hout complications ([facility] V24, [facility] V28) DX:Type 2 luz betes mellitus without complications (HCC) Psoriasis DX:Psoriasis Mixed [...] age to complete this topic Meningococcal B Vaccine Aged Out No l onger eligible based on patient's age to complete [...] Result * Urine Albumin Creatinine Ratio (02/18/2023) Pathologist [facility] Urine Albumin Creatinine Ratio Abstracted Historical Provider HEALTH MAINTENANCE Final Result * (ABNORMAL) Hemoglobin A1c (02/18/2023) [facility] Hemoglobin A1C 9.1(A) <=6.5 % Blood Venous blood specimen / Unknown Result [facility] Historical Provider LAB BLOOD ORDERABLES Ayaka l Result * Annual BMP Blood Test (12/10/2022) [facility] Annual BMP Blood Test Abstracted [facility] Provider HEALTH MAINTENANCE Final Result * Hepatitis C Screening (12/10/2022) [facility] Hepatitis C Screening Abstracted [facility] Provider HEALTH MAINTENANCE Final Result * (ABNORMAL) Lipid panel (12/10/2022) [facility] LDL/HDL Ratio 4 0 - 4 Triglycerides 90 0 - 150 mg/dL Cholesterol 163 0 - 200 mg/dL HDL 39(A) >=40 mg/dL LDL Cholesterol 106(A) 0 - 100 mg/dL Blood Venous blood specimen / Unknown [facility] Provider LAB BLOOD ORDERABLES Ayaka l Result * Cervical Cancer Screening: HPV (05/06/2022) [facility] Cervical Cancer Screening: HPV No interpreta tion,abstr acted [facility] Provider HEALTH MAINTENANCE Final Result from Last 3 Months or Most Recently Relevant to Health Maintenance Additional Health Concerns Infection Onset Date Last Indicated ESBL 05/02/2024 05/02/[address] [place] [id number] MEDICA[place] - [place] MEDICARE Care Teams Bowling Teacher Relationship Specialty Start Date End Date Physician, No Pcp PCP - General 08/29/24
[2024-10-29 10:47] LABS: Hematocrit 38.5 % (37.0-47.0); Hemoglobin 12.6 g/dl (12.0-16.0); Mean Corpuscular HGB Conc 32.7 g/dl (31.0-35.0); Mean Corpuscular Hemoglobin 27.1 pg (27.0-33.0); Mean Corpuscular Volume 82.8 fL (80.0-98.0); Mean Platelet Volume 12.3 fL (9.4-12.3); Platelet Count 262 X10*3/uL (160-400); Red Blood Count 4.65 X10*6/uL (4.20-5.50); White Blood Count 7.1 X10*3/uL (4.8-10.8)
[2024-10-29 11:13] LABS: Alanine Aminotransferase 32 U/L (0-31); Albumin Level 4.3 g/dL (3.5-5.0); Alkaline Phosphatase 76 U/L (39-117); Anion Gap 8 (12-20); Aspartate Amino Transferase 23 U/L (5-31); Bilirubin Total 0.3 mg/dL (0.0-1.0); Blood Urea Nitrogen 9 mg/dL (9-16); Calcium 9.1 mg/dL (8.4-10.2); Carbon Dioxide 31 mmol/L (22-29); Chloride 103 mmol/L (96-108); Cholesterol 204 mg/dL (<200); Estimated Glomerular Filt Rate > 60; Glucose Fasting 205 mg/dL (60-99); HDL Cholesterol 37 mg/dL (>40); LDL Cholesterol Calculated 148 mg/dL (<100); Potassium 4.1 mmol/L (3.3-5.1); Sodium 138 mmol/L (135-145); Triglycerides 98 mg/dL (<150)
[2024-10-29 11:56] LABS: Creatinine Urine 123.35 mg/dL; Microalbum/Creatinine Ratio Ur 13.7 ug/mg cr (<30)
== END 2024-10-29 09:40 | disposition home or self-care (01) ==
LOC: HO.LAB 09:39
PROVIDERS: PCP Physician Assistant; Visit Provider Physician Assistant
DX: E11.9 Type 2 diabetes mellitus without complications (principal)
CPT/HCPCS: 36415; 80053; 80061; 82043; 82570; 85027

== ENCOUNTER 2024-11-14 10:23 | Outpatient (AMB) | payer MEDICARE, MEDICAID, SELFPAY ==
[2024-11-14 10:33] VITALS: BP 124/64; PULSE 78; TEMP 36.3; O2SAT 97; BMI 26.4
--- NOTE | 2024-11-14 10:33 | AM.OFFVISMDC ---
Intake Vital Signs 11/14/24 10:33 Height 5 ft 1 in Weight 140 lb BMI 26.4 BP 124/64 Blood Pressure Location Lt brachial Position Sitting Pulse 78 Pulse Source Pulse Oximeter Temp 97.3 F Temp Source Temporal Artery Scan Pulse Oximetry (%) 97 Oxygen Delivery Method Room Air Intake Visit Reasons: AWV Refinisher Required: Yes Refinisher Language: Curling Machine Operator Name: Used tablet: Accompanied by: Self / Same As Patient Allergies apple (APPLE) Allergy (Severe, Verified 11/14/24 11:01) ANAPHYLAXIS Penicillins (PENICILLINS) Allergy (Intermediate, Verified 11/14/24 11:01) HIVES Nuts Allergy (Intermediate, Uncoded 11/14/24 11:01) Itchy throat. Medication List - Last Reconciled 11/14/24 by David Hoang PA-C atorvastatin (Lipitor) 20 mg PO DAILY 90 days azelastine 0.05% 1 drp ophthalmic (eye) BID 30 days blood pressure monitor As directed blood sugar diagnostic (OneTouch Ultra Test strips) testing twice per day calcipotriene 0.005% topical calcipotriene-betamethasone 0.005-0.064 % (Enstilar) topical DAILY PRN clobetasol 0.05% topical epinephrine 0.3 mg (0.3 mL) IM Q10M PRN 30 days fluticasone propionate 50 mcg/actuation 1 spray intranasal DAILY 30 days glimepiride 1 mg PO DAILY 90 days ketoconazole 2% topical lancets (OneTouch Delica Plus Lancet) testing twice per day per day loratadine (Claritin) 10 mg PO DAILY 90 days losartan 50 mg PO DAILY 90 days metformin 1,000 mg PO BID 90 days pimecrolimus 1% appl topical BID semaglutide (Ozempic) 0.25 mg (0.368 mL) subcut QWEEK 4 weeks HPI AWV HPI Details Patient is a 59 year female here today for an annual wellness visit Today we discussed patient's [place] of care, end of life planning and comprehensive care plan which was scanned into patient's documents. Type 2 diabetes: Her type 2 diabetes suboptimally controlled though a bit better than previous. She was willing to continue on Ozempic and upper dose to 0.5 mg weekly .. Hyperlipidemia: Most recent lipid panel showing elevated LDL and a borderline high cholesterol total. She is willing to start statin therapy to reduce her cardiovascular risk with goal LDL to be below 100 Mammogram: Mammogram done in September of 2024, needed repeat six-month imaging . Colorectal cancer screening: Has done colonoscopy 9 years ago .. Cervical cancer screening: Has upcoming appointment with OBGYFlorinda LAZARO Comments History of Present Illness Details reviewed past medical history- yes reviewed surgical / hospitalization history- yes reviewed current medications- yes reviewed family history- yes home safety throw rugs? grab bars? raised toilet seat? working smoke detectors? activities of daily living difficulty bathing or showering? difficulty dressing? difficulty using the toilet? difficulty getting in and out of bed? difficulty walking? receives help from other person's with any of the above tasks? instrumental activities of daily living uses telephone - gets to place out of walking distance- go shopping for groceries- repairs own meals- does own minor home maintenance- does own laundry- does own housework- manages own money- currently takes medication- end of life planning discussed advanced directives- yes advanced directives on file? discussed wishes expressed in advanced directives. fall risk have you had any falls with injuries in the past year? have you had 2 or more falls in the past year? fall risk assessment: [facility] Medical History Hypertension Type II diabetes mellitus Family History Sister Colon cancer Social History Alcohol intake: never Patient Tobacco Use Status: Never used Tobacco Current occupational status: disabled Questionnaire Medicare Wellness Checkup What [age] What gender do you identify with?: female During the past 4 weeks, how much have you been bothered by emotional problems such as feeling anxious, depressed, irritable, sad or downhearted, and blue?: not at all During the past 4 weeks, has your physical & emotional health limited your social activities with family, friends, neighbors, or groups?: not at all During the past 4 weeks, how much bodily pain have you generally had?: no pain During the past 4 weeks, was someone available to help you if you needed & wanted help?: no, not at all Can you get to places out of walking distance without help? (For eg., can you travel alone on buses, taxis or drive your car?): Yes Can you go shopping for groceries or clothes without someone's help?: Yes Can you prepare your own meals?: Yes Can you do your housework without help?: Yes Because of any health problems, do you need the help of another person with your personal care needs such as eating, bathing, dressing or getting around the house?: No Can you handle your own money without help?: No During the past 4 weeks, how would you rate your health in general?: fair During the past 4 weeks how have things been going for you?: good & bad parts about equal Are you having difficulties driving your car?: no Do you always fasten your seat belt when you are in a car?: yes, usually During past 4 weeks, have you been bothered by the following: never: Teeth or denture problems? and Problems using the telephone?, sometimes: Falling or dizzy when standing up, Sexual problems? and Tiredness or fatigue? and often: Trouble eating well? Have you fallen 2 or more times in the past year?: Yes Are you afraid of falling?: No Are you a smoker?: no During the past 4 weeks, how many drinks of wine, beer, or other alcoholic beverages did you have?: no alcohol at all Do you exercise for about 20 minutes 3 or more times a week?: no, I usually do not exercise this much Have you been given information to help with the following?: no: Hazards in your house that might hurt you? and no: Keeping track of your medications? How often do you have trouble taking medicines the way you have been told to take them?: I do not have to take medicine How confident are you that you can control & manage most of your health problems?: somewhat confident What is your race?: or origin or descent Mini Mental State Exam (MMSE) Orientation What is the (year) (season) (date) (day) (month)?: year Where are we (state) (county) (town or city) (hospital) (floor)?: town or city Score Score: 2 Activity of Daily Living Bathing - sponge bath, tub bath or shower: receives no assistance (gets in/out by self, if usual bathing means Dressing - getting clothes from closets & drawers, including inner/outer garments & fasteners.: gets clothes & gets completely dressed without help Toileting - going to the 'toilet room' for urine/bowel elimination & cleaning self/arranging clothes: goes to toilet room, cleans self, arranges clothes without help Transfer: moves in & out of bed and chair without help (may use support object) Continence: controls urination/bowel movements completely by self Feeding: feeds self without help Total Score: 0 Information obtained from: patient Using telephone: independent Traveling: independent Shopping: independent Preparing meals: independent Housework: independent Taking medicine: independent Managing money: independent PHQ-9 Over the last 2 weeks, how often have you been bothered by any of the following problems? 1. Little interest or pleasure in doing things: several days 2. Feeling down, depressed, or hopeless: several days 3. Trouble falling or staying asleep, or sleeping too much: several days 4. Feeling tired or having little energy: several days 5. Poor appetite or overeating: several days 6. Feeling bad about yourself - or that you are a failure or have let yourself or your family down: not at all 7. Trouble concentrating on things, such as reading the newspaper or watching television: not at all 8. Moving or speaking so slowly that other people could have noticed. Or the opposite - being so fidgety or restless that you have been moving around a lot more than usual: not at all 9. Thoughts that you would be better off or of hurting yourself in some way: not at all Total score: 5 86777 - PHQ-9 Billing: Yes Source: Developed by Drs. Lasha Nixon, Beryl Hemphill, Dannie Logan and colleagues, with an educational guerita from [employer]. Physical Exam Vital Signs: Last Vital Signs Temp 97.3 F 11/14/24 10:33 Pulse 78 11/14/24 10:33 BP 124/64 11/14/24 10:33 Pulse Ox 97 11/14/24 10:33 Oxygen Delivery Method Room Air 11/14/24 10:33 BMI result Body Mass Index 26.4 HEENT Other: hearing screening whisper test- passed Eyes Other: vision screening- 20 20 OS OD OU Other: urinary incontinence? no Neuro Other: balance Romberg- normal tandem walk test- able walk-in turned test- able rise from sit to stand- within 2 seconds Results AMB Hemoglobin A1c AMB Hemoglobin A1c 8.1 % Last Edit by DEJON Acuna on 11/14/24 11:59 Results Reviewed Results Reviewed: Laboratory Last Values Hgb A1c (Clinic) 8.1 % (4.0-6.0) H 11/14/24 10:31 Assessment & Plan Assessment & Plan (1) Annual wellness visit: Code(s): Z00.00 - Encounter for general adult medical examination without abnormal findings Plan: As per HPI (2) Psoriasis: Code(s): L40.9 - Psoriasis, unspecified Plan: Patient has psoriasis in her gluteal folds, her diabetic medication causes her more frequency of stool. She is asking for sanitary wipes to help her reduce her rectal pain. (3) Rectal pain: Code(s): K62.89 - Other specified diseases of anus and rectum Plan: As above (4) Type II diabetes mellitus: Code(s): E11.9 - Type 2 diabetes mellitus without complications Qualifiers: Diabetes mellitus complication status: with hyperglycemia Diabetes mellitus prison insulin use: without long term acute care registered nurse use Qualified Code(s): E11.65 - Type 2 diabetes mellitus with hyperglycemia Plan: Today's A1c at 8.1 from 8.6. Will increase her Ozempic to 0.5 mg weekly for better glycemic control. She will work on dietary modifications. Will follow up in 3 months and recheck A1c. (5) HLD (hyperlipidemia): Code(s): E78.5 - Hyperlipidemia, unspecified Qualifiers: Hyperlipidemia type: mixed hyperlipidemia Qualified Code(s): E78.2 - Mixed hyperlipidemia Plan: Patient's recent lipid panel showing borderline high total cholesterol and elevated LDL. She is willing to start cholesterol medication to reduce her CV risk. LDL goal is to be below 100. Will recheck in 3 months. Orders: Orders AMB Hemoglobin A1c 11/14/24 E11.65 - Type 2 diabetes mellitus with hyperglycemia Lipid Panel 11/14/24 E78.5 - Hyperlipidemia, unspecified Complete Blood Count no Diff 11/14/24 E78.5 - Hyperlipidemia, unspecified Comprehensive [place]. Panel Fast 11/14/24 E11.65 - Type 2 diabetes mellitus with hyperglycemia Medications: New atorvastatin (Lipitor) 20 mg PO DAILY 90 tabs 1RF 90 days E11.65 - Type 2 diabetes mellitus with hyperglycemia, E78.5 - Hyperlipidemia, unspecified [Sanitary wipes] As directed 1 ea 0RF K62.89 - Other specified diseases of anus and rectum [Sanitary wipes] As directed 1 ea 0RF K62.89 - Other specified diseases of anus and rectum Changed From semaglutide (Ozempic) 0.25 mg (0.368 mL) subcut QWEEK 4 weeks 3 mL 3RF E11.65 - Type 2 diabetes mellitus with hyperglycemia To semaglutide (Ozempic) 0.5 mg (0.736 mL) subcut QWEEK 3 mL 3RF 4 weeks E11.65 - Type 2 diabetes mellitus with hyperglycemia Refilled metformin 1,000 mg PO BID 180 tabs 1RF 90 days E11.9 - Type 2 diabetes mellitus without complications glimepiride 1 mg PO DAILY 90 tabs 1RF 90 days E11.9 - Type 2 diabetes mellitus without complications losartan 50 mg PO DAILY 90 tabs 1RF 90 days I10 - Essential (primary) hypertension Quality Reporting (2019) Depression/Bipolar (159/160/161/177) PHQ-9: Total score: 5 Coding Level of Care Code Medicare First (G0438) Est Pt Level 4 (62551) Diagnoses Annual wellness visit Z00.00 Psoriasis L40.9 Rectal pain K62.89 Type 2 diabetes mellitus with hyperglycemia, without long-term current use of insulin E11.65 Diabetes mellitus complication status: with hyperglycemia Diabetes mellitus prison insulin use: without long term acute care registered nurse use Mixed hyperlipidemia E78.2 Hyperlipidemia type: mixed hyperlipidemia CPT Codes Advance Care Planning - Time spent: 1-15 minutes, on File ([id number]) Additional Codes PHQ-9 - 72920 - PHQ-9 Billing: Yes ([id number]) Advance Care Planning Advance Care Planning discussion: Completed/Scanned Date of discussion: 11/14/24 Forms completed: MOLST Time spent: 1-15 minutes, on File Actual minutes spent: 6
--- OUTSIDE RECORDS SUMMARY | 2024-11-14 12:07 | XMS_ITS | Clinical Summary ---
Author Organization [facility] [address] [place] [address] [place] [address] [place] [phone] Phone Care Team Providers Care Fnps Name Role Phone Physician, No Pcp Primary [...] DX E11.9 3 Active blood-glucose meter misc DX E11.9 3 Active EPINEPHRINE BASE, REFILL, INHL Inject as directed. Active metFORMIN (GLUCOPHAGE) 1,000 mg tablet [...] complication, without long-term current use of insulin ([facility] V24, [facility] V28) 12/24/2022 Immunizations Name Administration Dates Next [...] HISTORICAL TUBAL LIGATION BREAST REDUCTION Bilateral PROCEDURE: [place] BREAST REDUCTION HAND SURGERY 2010 Right PROCEDURE: HISTORICAL HAND SURGERY; COMMENT: work accident Medical History Medical History Date Comments HTN (hypertension) DX:HTN (hyper tension) Type 2 diabetes mellitus wit hout complications ([facility] V24, [facility] V28) DX:Type 2 luz betes mellitus without complications ([facility]) Psoriasis DX:Psoriasis Mixed hyperlipidemia DX:Mixed hy perlipidemia [...] 86 05/02/2024 10:48 AM EST Temperature 36.1 C (97 F) 05/02/2024 10:48 AM EST Respiratory Rate 16 [...] Breast cancer risk category Low (<15%) Result [facility] Aleah Patino CNM IMG XR PROCEDURES Final Result * Urine Albumin Creatinine Ratio (02/18/2023) [facility] Urine Albumin Creatinine Ratio Abstracted Historical Provider HEALTH MAINTENANCE Final Result * (ABNORMAL) Hemoglobin A1c (02/18/2023) [facility] Hemoglobin A1C 9.1(A) <=6.5 % Blood Venous blood specimen / Unknown Result [facility] Provider LAB BLOOD ORDERABLES Ayaka l Result * Annual BMP Blood Test (12/10/2022) [facility] Annual BMP Blood Test Abstracted Historical Provider HEALTH MAINTENANCE Final Result * Hepatitis C Screening (12/10/2022) Pathologist [facility] Hepatitis C Screening Abstracted [facility] Provider HEALTH MAINTENANCE Final Result * (ABNORMAL) Lipid panel (12/10/2022) [facility] LDL/HDL Ratio 4 0 - 4 Triglycerides 90 0 - 150 mg/dL Cholesterol 163 0 - 200 mg/dL HDL 39(A) >=40 mg/dL LDL Cholesterol 106(A) 0 - 100 mg/dL Blood Venous blood specimen / Unknown [facility] Provider LAB BLOOD ORDERABLES Ayaka l Result * Cervical Cancer Screening: HPV (05/06/2022) Pathologist [facility] Cervical Cancer Screening: HPV No interpreta tion,abstr acted [facility] Provider HEALTH MAINTENANCE Final Result from Last 3 Months or Most Recently Relevant to Health Maintenance Additional Health Concerns Infection Onset Date Last Indicated ESBL 05/02/2024 05/02/[address] [place] [id number] [place] Care Teams Fnps Relationship Specialty Start Date End Date Physician, No Pcp PCP - General 08/29/24
== END 2024-11-14 11:25 | disposition home or self-care (01) ==
LOC: HO.HMCH 10:23
PROVIDERS: PCP Physician Assistant; Visit Provider Physician Assistant
DX: E11.65 Type 2 diabetes mellitus with hyperglycemia (principal)

== ENCOUNTER → 2024-11-14 10:23 | Outpatient (BNVA) | payer MEDICARE, MEDICAID, SELFPAY | PROVIDERS: PCP Physician Assistant; Visit Provider Physician Assistant | DX: Z00.00 Encounter for general adult medical examination without abnormal findings (principal); E11.65 Type 2 diabetes mellitus with hyperglycemia; I10 Essential (primary) hypertension; E78.2 Mixed hyperlipidemia; K62.89 Other specified diseases of anus and rectum; L40.9 Psoriasis, unspecified | CPT/HCPCS: 83036; 96127; 99212 ==

== ENCOUNTER 2025-02-18 10:59 | Outpatient (AMB) | payer MEDICARE, MEDICAID, SELFPAY ==
--- NOTE | 2025-02-18 11:34 | MHC.PC.OV ---
Vital Signs 02/18/25 11:36 Height 5 ft 1 in Weight 139 lb 4 oz BMI 26.3 BP 126/64 Blood Pressure Location Lt brachial Position Sitting Pulse 81 Pulse Source Pulse Oximeter Temp 96.9 F Temp Source Temporal Artery Scan Pulse Oximetry (%) 98 Oxygen Delivery Method Room Air Intake Visit Reasons: 3m f/u Intake Note: Patient is here to follow up on DM, HLD, HTN. Cafeteria Table Attendant Required: Yes Cafeteria Table Attendant Language: Hebrew Information Interpreted: non-clinical & clinical Accompanied by: Self / Same As Patient Allergies apple (APPLE) Allergy (Severe, Verified 02/18/25 11:51) ANAPHYLAXIS Penicillins (PENICILLINS) Allergy (Intermediate, Verified 02/18/25 11:51) HIVES Nuts Allergy (Intermediate, Uncoded 02/18/25 11:51) Itchy throat. Medication List - Last Reconciled 02/18/25 by David Hoang PA-C atorvastatin (Lipitor) 20 mg PO DAILY 90 days azelastine 0.05% 1 drp ophthalmic (eye) BID 30 days blood pressure monitor As directed blood sugar diagnostic (Boundless NetworkTouch Ultra Test strips) testing twice per day calcipotriene 0.005% topical calcipotriene-betamethasone 0.005-0.064 % (Enstilar) topical DAILY PRN clobetasol 0.05% topical epinephrine 0.3 mg (0.3 mL) IM Q10M PRN 30 days fluticasone propionate 50 mcg/actuation 1 spray intranasal DAILY 30 days glimepiride 1 mg PO DAILY 90 days ketoconazole 2% topical lancets (OneTouch Delica Plus Lancet) testing twice per day per day loratadine (Claritin) 10 mg PO DAILY 90 days losartan 50 mg PO DAILY 90 days metformin 1,000 mg PO BID 90 days pimecrolimus 1% appl topical BID [Sanitary wipes As directed] semaglutide (Ozempic) 0.5 mg (0.736 mL) subcut QWEEK 4 weeks Tobacco use date assessed: 02/18/25 Dental Screening Dental Screen Date: 02/18/25 Did you have a dental visit in the last 12 months?: Yes Did you have a dental problem in the last 6 months where you did not have access to dental care?: No Was dental information given to patient?: Patient has dentist HPI 3m f/u HPI Details Patient is a 60 year female here today for follow-up visit. Patient has a past medical history significant for hyperlipidemia , psoriasis and type 2 diabetes Type 2 diabetes: Her type 2 diabetes suboptimally controlled today's A1c at 9.1 from 8.1. She reports being out of Ozempic over 3 months. She recently restarted Ozempic the last month she will increase her dose to 0.5 mg weekly . We did discuss a diabetic diet and she does report having a lot of bread and rice in her diet. She is interested in speaking with the dietitian about a diabetic diet. .. Hyperlipidemia: Most recent lipid panel showing elevated LDL and a borderline high cholesterol total. She is willing to start statin therapy to reduce her cardiovascular risk with goal LDL to be below 100 PFSH Medical History Hypertension Type II diabetes mellitus Surgical History History of bilateral breast reduction surgery History of tubal ligation Family History Sister Colon cancer Social History Alcohol intake: never Patient Tobacco Use Status: Never used Tobacco e-Cigarette/Vaping Use: Never Used Second Hand Smoke Exposure: No service: No Current occupational status: disabled Cognitive needs: No Hearing needs: No Vision needs: No Questionnaire PHQ-9 Over the last 2 weeks, how often have you been bothered by any of the following problems? 1. Little interest or pleasure in doing things: not at all 2. Feeling down, depressed, or hopeless: several days Source: Developed by Drs. Lasha Nixon, Beryl Hemphill, Dannie Logan and colleagues, with an educational guerita from [employer]. Thrive Questionnaire Date Thrive assessed: 08/06/24 I am a: Patient What is your living situation today?: I have a steady place to live Within the past 12 months, did the food you bought not last and you didn't have the money to get more?: Never true Within the past 12 months, did you worry whether your food would run out before you got money to buy more?: Never true Do you have trouble paying for medicines?: No Do you have trouble getting transportation to medical appointments?: No Do you have trouble paying your heating and electricity bill?: No Do you have trouble taking care of your child, family member or friend?: No Do you have trouble with day-to-day activities such as bathing, preparing meals, shopping, managing finances, etc.?: No Are you currently unemployed and looking for a job?: No Are you interested in more education?: No Please select the resources that you would like help with: None Currently or been in a relationship where the following occur: No concerns reported THRIVE Score: 0 AUDIT C Alcohol Use Questionnaire (AUDIT-C) 1. How often do you have a drink containing alcohol?: Never Total Score: 0 ADELINE-7 AMB Questionnaire ADELINE-7 Date ADELINE - 7 assessed: 02/18/25 Feeling nervous, anxious, or on edge: 0 = Not at all Not being able to stop or control worryin = Not at all Worrying too much about different things: 0 = Not at all Trouble relaxin = Not at all Being so restless that it is hard to sit still: 0 = Not at all Becoming easily annoyed or irritable: 0 = Not at all Feeling afraid as if something awful might happen: 0 = Not at all Total ADELINE-7 score (0-4 normal; 5-9 mild; 10-14 moderate; 15-21 severe): 0 Source: Developed by Drs. Lasha Nixon, Beryl Hemphill, Dannie Logan and colleagues, with an educational guerita from [employer]. Review of Systems Const Denies headache(s) Eyes Denies loss of vision ENT Denies vertigo, Denies dizziness, Denies headache(s) and Denies sore throat Card Denies chest pain, Denies leg edema and Denies lightheadedness Resp Denies cough, Denies hemoptysis and Denies wheezing GI Denies abdominal pain, Denies melena, Denies constipation, Denies diarrhea and Denies vomiting Denies urinary frequency, Denies dysuria and Denies urinary urgency Musc Denies arthralgias, Denies joint swelling, Denies numbness and Denies tingling Neuro Denies Abnormal speech present, Denies behavioral changes, Denies vertigo, Denies dizziness, Denies headache(s), Denies loss of vision, Denies memory loss, Denies numbness and Denies tingling Psych Denies anxiety, Denies behavioral changes, Denies depression, Denies memory loss and Denies panic attacks Phill/Lymph Denies easy bleeding and Denies easy bruising Aller/Immun Denies wheezing Physical exam (Primary Care) Vital Signs: Last Vital Signs Temp 96.9 F 02/18/25 11:36 Pulse 81 02/18/25 11:36 BP 126/64 02/18/25 11:36 Pulse Ox 98 02/18/25 11:36 Oxygen Delivery Method Room Air 02/18/25 11:36 BMI result Body Mass Index 26.3 Tobacco/Smoking Status: Tobacco use Status Tobacco use date assessed 02/18/25 02/18/25 11:45 Patient Tobacco Use Status Never used Tobacco 02/18/25 11:45 e-Cigarette/Vaping Use Never Used 02/18/25 11:45 Thrive Assessment: Date of Thrive Assessment Date Thrive assessed 08/06/24 02/18/25 11:45 Currently or been in a relationship where the following occur: No concerns reported Const General: healthy appearing, no acute distress, alert and awake Nutritional Appearance: well nourished Orientation/consciousness: oriented to person, oriented to place and oriented to time HENMT Ears: TM's normal bilaterally General nose exam: Normal nasal mucous membranes and turbinates present Eyes Conjunctivae: conjunctivae normal Sclerae: sclerae normal Pupils: Equal, round and reactive pupils present Neck Neck: Yes no lymphadenopathy and Yes no JVD Thyroid: Thyroid normal Carotids: no bruits Resp Effort & Inspection: normal respiratory effort and not tachypneic Auscultation: no crackles, no rales, no rhonchi and no wheezes Cardio Rate: regular rate Rhythm: regular rhythm Heart sounds: no murmurs and normal S1 and S2 GI Palpation (GI): Soft to palpation, nontender, no hepatomegaly and no splenomegaly Auscultation: normal bowel sounds Skin General skin exam: no rashes or lesions noted and dry skin Neuro General: oriented to person, oriented to place and oriented to time Cranial nerves: Yes Equal, round and reactive pupils present Speech: No Abnormal speech present Gait exam (Neuro): Normal gait present Motor exam (neuro): no tremor noted Extrem Right upper extremity: full ROM Left upper extremity: full ROM Right lower extremity: full ROM; no edema Left lower extremity: full ROM; no edema Psych Mental Status: mental status grossly normal Speech and movement: Normal speech and movement present Affect: normal affect Attitude: cooperative Thought process: Normal thought process present Results AMB Hemoglobin A1c AMB Hemoglobin A1c 9.1 % Last Edit by RAFIA Rahman on 02/18/25 11:46 Results Reviewed Results Reviewed: Laboratory Last Values Hgb A1c (Clinic) 9.1 % (4.0-6.0) H 02/18/25 11:33 Coding Level of Care Code Est Pt Level 4 (76289) Diagnoses Type 2 diabetes mellitus with hyperglycemia, without long-term current use of insulin E11.65 Diabetes mellitus complication status: with hyperglycemia Diabetes mellitus fci insulin use: without risk and insurance consultant use Mixed hyperlipidemia E78.2 Hyperlipidemia type: mixed hyperlipidemia Assessment & Plan Assessment & Plan (1) Type II diabetes mellitus: Code(s): E11.9 - Type 2 diabetes mellitus without complications Category: Medical Qualifiers: Diabetes mellitus complication status: with hyperglycemia Diabetes mellitus risk and insurance consultant insulin use: without fci use Qualified Code(s): E11.65 - Type 2 diabetes mellitus with hyperglycemia Plan: Patient's type 2 diabetes suboptimally controlled. Today's A1c at 9.1 she has recently restarted Ozempic 0.25 mg and will increase her dose to 0.5 mg for better glycemic control. She will work on dietary modifications. Will try to set patient up with a dietitian to help her with a diabetic diet Will follow up in 3 months and recheck A1c. (2) HLD (hyperlipidemia): Code(s): E78.5 - Hyperlipidemia, unspecified Category: Medical Qualifiers: Hyperlipidemia type: mixed hyperlipidemia Qualified Code(s): E78.2 - Mixed hyperlipidemia Plan: Patient's recent lipid panel showing borderline high total cholesterol and elevated LDL. She is willing to start cholesterol medication to reduce her CV risk. LDL goal is to be below 100. Will recheck in 3 months. Orders: Orders AMB Hemoglobin A1c Today E11.65 - Type 2 diabetes mellitus with hyperglycemia Referrals Nutrition/Dietitian Referral E11.65 - Type 2 diabetes mellitus with hyperglycemia Medications: Refilled semaglutide (Ozempic) 0.5 mg (0.736 mL) subcut QWEEK 3 mL 3RF 4 weeks E11.65 - Type 2 diabetes mellitus with hyperglycemia metformin 1,000 mg PO BID 180 tabs 1RF 90 days E11.9 - Type 2 diabetes mellitus without complications losartan 50 mg PO DAILY 90 tabs 1RF 90 days I10 - Essential (primary) hypertension epinephrine for 2 doses 0.3 mg (0.3 mL) IM Q10M PRN 2 ea 1RF anaphylaxis 30 days Z87.892 - Personal history of anaphylaxis atorvastatin (Lipitor) 20 mg PO DAILY 90 tabs 1RF 90 days E11.65 - Type 2 diabetes mellitus with hyperglycemia, E78.5 - Hyperlipidemia, unspecified glimepiride 1 mg PO DAILY 90 tabs 1RF 90 days E11.9 - Type 2 diabetes mellitus without complications Patient Instructions: Goal: A1c to be below 7.0, LDL to be below 100 Barriers: Adherence to physical activity and healthy eating habits
[2025-02-18 11:36] VITALS: BP 126/64; PULSE 81; TEMP 36.1; O2SAT 98; BMI 26.3
--- OUTSIDE RECORDS SUMMARY | 2025-02-18 12:29 | XMS_ITS ---
Author Name [facility] Organization Unknown Care Team Organization Name Specialty Phone Email Start Date End [facility]
--- OUTSIDE RECORDS SUMMARY | 2025-02-18 12:29 | XMS_ITS | Clinical Summary ---
Author Organization [facility] [address] [place] [address] [place] [address] BELÉN Hyman [phone] Phone Care Team Providers Care Performance Test Engineer Name Role Phone Physician, No Pcp Primary [...] complication, without long-term current use of insulin [place] [place] [facility] [place] 12/24/2022 Immunizations Immunization Administration Dates Next Due Moderna SARS-CoV-2 COVID-19, mRNA, LNP-S, preservative free 07/16/2021,04/15/2021 Pneumococcal conjugate 20 va lent (Prevnar 20, PCV 20) 2mo and older 02/18/2023 Td Tetanus diptheria (Tdvax) 7yo and older 02/17 Tdap Tetanus diptheria acell ular pertussis (Boostrix; Adacel) 7yo and older 11/05/2021 Surgical History Surgery Date Site/Laterality Comments TUBAL LIGATION PROCEDURE: HISTORICAL TUBAL LIGATION BREAST REDUCTION Bilateral PROCEDURE: [place] BREAST REDUCTION HAND SURGERY 2010 Right PROCEDURE: HISTORICAL HAND SURGERY; COMMENT: work accident Medical History Medical History Date Comments HTN (hypertension) DX:HTN (hyper tension) Type 2 diabetes mellitus wit hout complications [place] [place] [facility] [place]28) DX:Type 2 luz betes mellitus without complications ([facility]) Psoriasis DX:Psoriasis Mixed hyperlipidemia DX:Mixed hy [...] 1975 Diabetes: Annual Retina Eye Exam 1975 Zoster Vaccines (1 of 2) 2015 HIV Screening 11/16/2022 Social Influencers of Health Screening 11/16/2022 Medicare Annual Wellness Visit 05/11/2023 05/11/2022 Diabetes: Blood Sugar Control Test (HGBA1C) 08/19/2023 02/18/2023 Diabetes: Annual GFR (Glomerular Filtration Rate) 12/11/2023 12/10/2022 Hypertension/CHF/CAD Annual BMP Blood Test 12/11/2023 12/10/2022 Diabetes: Annual Urine Albumin-Creatinine Ratio (uACR) 02/19/2024 02/18/2023 Depression Screening 05/23/2024 COVID-19 Vaccine ( season) 2025 07/16/2021, 04/24/2021, 04/15/2021, Additional history exists Influenza Vaccine (#1) 2025 Breast Cancer Screening 05/19/2025 05/19/2023, 05/07 Colorectal Cancer Screening: Colonoscopy 09/06/2026 09/06/2016 Cervical Cancer Screening: HPV 05/06/2027 05/06/2022 Cholesterol Screening (Lipid Panel) 12/11/2027 12/10/2022 DTaP,Tdap,and Td Vaccines (3 - Td or Tdap) 11/06/2031 11/05/2021, 02/17/2019 RSV Immunization Adult Patients (1 - 1-dose 75+ series) 01/29/2040 Hepatitis C Screening Completed 12/10/2022 Pneumococcal Vaccine: 50+ Years Completed 02/18/2023 HIB Vaccines Aged Out No longer eligi ble based on patient's age to complete this topic HPV Vaccines Aged Out No longer eligi ble based on patient's age to complete this topic Hepatitis A Vaccines Aged Out No long er eligible based on patient's age to complete this topic Hepatitis B Vaccines Aged Out No long er eligible [...] LIPID PANEL Routine 12/10/2022 HPV Routine 05/06/2022 EXTERNAL COLONOSCOPY REPORT Routine 09/06/2016 11:16 AM EDT from Last 3 Months or Most Recently [...] Breast cancer risk category Low (<15%) Result [facility] Aleah Patino CNM IMG XR PROCEDURES Final Result * Urine Albumin Creatinine Ratio (02/18/2023) Pathologist [facility] Urine Albumin Creatinine Ratio Abstracted Result [facility] Provider HEALTH MAINTENANCE Final Result * (ABNORMAL) Hemoglobin A1c (02/18/2023) [facility] Hemoglobin A1C 9.1(A) <=6.5 % Blood Venous blood specimen / Unknown Result [facility] Provider LAB BLOOD ORDERABLES Ayaka l Result * Annual BMP Blood Test (12/10/2022) Pathologist [facility] Annual BMP Blood Test Abstracted Result [facility] Provider HEALTH MAINTENANCE Final Result * Hepatitis C Screening (12/10/2022) Pathologist [facility] Hepatitis C Screening Abstracted [facility] Provider HEALTH MAINTENANCE Final Result * (ABNORMAL) Lipid panel (12/10/2022) [facility] LDL/HDL Ratio 4 0 - 4 Triglycerides 90 0 - 150 mg/dL Cholesterol 163 0 - 200 mg/dL HDL 39(A) >=40 mg/dL LDL Cholesterol 106(A) 0 - 100 mg/dL Blood Venous blood specimen / Unknown Result [facility] Provider LAB BLOOD ORDERABLES Ayaka l Result * Cervical Cancer Screening: HPV (05/06/2022) [facility] Cervical Cancer Screening: HPV No interpreta tion,abstr acted [facility] Provider HEALTH MAINTENANCE Final Result * External Colonoscopy Report (09/06/2016 11:16 AM EDT) Anatomical Region Laterality Modality Endoscopy Result [facility] Provider GI~PROCEDURE ORDERABLES F inal Result from Last 3 Months or Most Recently Relevant to Health Maintenance Additional Health Concerns Infection Onset Date Last Indicated ESBL 05/02/2024 05/02/[address] [place] [id number] [place]ICA[place] Care Teams Performance Test Engineer Relationship Specialty Start Date End Date Physician, No Pcp PCP - General 08/29/24
== END 2025-02-18 12:13 | disposition home or self-care (01) ==
LOC: HO.HMCH 11:00
PROVIDERS: PCP Physician Assistant; Visit Provider Physician Assistant
DX: E11.65 Type 2 diabetes mellitus with hyperglycemia (principal); E78.2 Mixed hyperlipidemia

== ENCOUNTER → 2025-02-18 10:59 | Outpatient (BNVA) | payer MEDICARE, MEDICAID, SELFPAY | PROVIDERS: PCP Physician Assistant; Visit Provider Physician Assistant | DX: E11.65 Type 2 diabetes mellitus with hyperglycemia (principal); E78.2 Mixed hyperlipidemia; I10 Essential (primary) hypertension | CPT/HCPCS: 83036; 99212 ==

== ENCOUNTER 2025-02-26 10:58 | Outpatient (AMB) | payer MEDICARE, MEDICAID, SELFPAY ==
--- NOTE | 2025-02-26 11:07 | A.OFFVIS_ITS ---
VS Expanded 02/26/25 11:08 03/07/25 14:16 Height 5 ft 1 in 5 ft 1 in Weight 140 lb 6.951 oz 140 lb BMI 26.5 26.4 Intake Visit Reasons: Type 2 diabetes mellitus with hyperglycemia Allergies apple (APPLE) Allergy (Severe, Verified 02/18/25 11:51) ANAPHYLAXIS Penicillins (PENICILLINS) Allergy (Intermediate, Verified 02/18/25 11:51) HIVES Nuts Allergy (Intermediate, Uncoded 02/18/25 11:51) Itchy throat. Nutrition Presentation Details: Pt presents for initial MNT for T2DM BS Monitoring Most Recent Diabetes Results: Microalb/Creat Ratio, (<30) 13.7 ug/mg cr 10/29/24 Cholesterol, (<200) 204 mg/dL H 10/29/24 HDL Cholesterol, (>40) 37 mg/dL L 10/29/24 Triglycerides, (<150) 98 mg/dL 10/29/24 Creatinine, (0.5-1.4) 0.51 mg/dL 10/29/24 BUN, (9-16) 9 mg/dL 10/29/24 Sodium, (135-145) 138 mmol/L 10/29/24 Potassium, (3.3-5.1) 4.1 mmol/L 10/29/24 Chloride, (96-108) 103 mmol/L 10/29/24 Carbon Dioxide, (22-29) 31 mmol/L H 10/29/24 Calcium, (8.4-10.2) 9.1 mg/dL 10/29/24 AST, (5-31) 23 U/L 10/29/24 ALT, (0-31) 32 U/L H 10/29/24 Total Protein, (6.5-8.0) 8.0 g/dL 10/29/24 Albumin, (3.5-5.0) 4.3 g/dL 10/29/24 LEY-Moulegj-Qu.Jeor Equation Height: 5 ft 1 in Weight: 140 lb Resting Metabolic Rate: 1146.57 Calculated Activity Level: Sedentary Calories Needed to Maintain Weight: 1375.88 Diagnosis Nutrition problem #1: food nutri know defi As related to (etiology) #1: diagnosis As evidenced by (sign/symptom) #1: knowledge deficit of diet PFSH Medical History Hypertension Type II diabetes mellitus Surgical History History of bilateral breast reduction surgery History of tubal ligation Family History Sister Colon cancer Social History Alcohol intake: never Patient Tobacco Use Status: Never used Tobacco e-Cigarette/Vaping Use: Never Used Second Hand Smoke Exposure: No service: No Current occupational status: disabled Cognitive needs: No Hearing needs: No Vision needs: No Assessment & Plan Assessment & Plan (1) Type II diabetes mellitus: Code(s): E11.9 - Type 2 diabetes mellitus without complications Category: Medical Qualifiers: Diabetes mellitus complication status: with hyperglycemia Diabetes mellitus graduate research assistant insulin use: without custodial use Qualified Code(s): E11.65 - Type 2 diabetes mellitus with hyperglycemia Plan: current wt: 64 kg ( 03/16 ) est kcal needs as per MSJ: 1400 est protein needs as per 1 g/kg BW: 60 est fluid needs as per 30 ml/kg BW: 2000 Recommended fiber > 12 g /day and gradually increase up to 25-28 g /day or as tolerated Nutrition topics discussed : Reviewed (R), Pt verbalized understanding (V) , not applicable (N/A) R, : Healthy Plate Method Concept: R, : Carbohydrates: food sources of carbohydrates, relationship of carbohydrates to blood glucose, fatty liver GI health. Recommended total amount of carbohydrates per meals and snack. Differences between simple carbohydrates and complex carbohydrates R, : Lean protein foods including vegan , vegetarian sources of protein. Benefi ts of protein (including but not limited to healing, nutritional value , benefits in weight loss, glucose control R, V, N/A: Fats : Source of fats, benefits of fats. Difference between saturated and unsaturated fats. Saturated fats and its contribution to inflammation R, V, N/A: Fiber: food sources and role of fiber in the diet (including but not limited to its role as a prebiotic, benefits in constipation, role in IBS , role in glucose control and cholesterol level) R, V, N/A: Hydration: role of hydration and prevention of dehydration or over hydration. Foods and water content. R, V, N/A: Vitamins and Minerals in foods and supplements R, V, N/A: Interpreting food labels, including serving size, macronutrients, vitamins, minerals, allergens, ingredient list , % daily value Patient Instructions: Work on reducing total carb per meal to 30-45 g (3 meals/day) and snack 0-20 g carb , limit to 2 snacks/day see meal ideas as reference practice mindful eating choose low sugar beverages- see list of options Coding Level of Care Code Nutr Indiv Intake (28012) Diagnoses Type 2 diabetes mellitus with hyperglycemia, without long-term current use of insulin E11.65 Diabetes mellitus complication status: with hyperglycemia Diabetes mellitus graduate research assistant insulin use: without graduate research assistant use Time Spent (min) 30
[2025-02-26 11:08] VITALS: BMI 26.5
--- OUTSIDE RECORDS SUMMARY | 2025-02-26 13:35 | XMS_ITS | Clinical Summary ---
Author Organization [facility] [address] [place] [address] [place] [address] BELÉ[place] Hyman [phone] Phone Care Team Providers Care Business Support Coordinator Name Role Phone Physician, No Pcp Primary [...] complication, without long-term current use of insulin ([facility], [facility] [facility] [place]28[place] 12/24/2022 Immunizations Immunization Administration Dates Next [...] HISTORICAL TUBAL LIGATION BREAST REDUCTION Bilateral PROCEDURE: CT BREAST REDUCTION HAND SURGERY 2010 Right PROCEDURE: HISTORICAL HAND SURGERY; COMMENT: work accident Medical History Medical History Date Comments HTN (hypertension) DX:HTN (hyper tension) Type 2 diabetes mellitus wit hout complications ([facility] [place], [facility] V28) DX:Type 2 luz betes mellitus without complications ([facility]) Psoriasis DX:Psoriasis Mixed hyperlipidemia DX:Mixed hy perlipidemia [...] Breast cancer risk category Low (<15%) Result [facility] Aleah Patino CNM IMG XR PROCEDURES Final Result * Urine Albumin Creatinine Ratio (02/18/2023) Pathologist [facility] Urine Albumin Creatinine Ratio Abstracted Result [facility] Provider HEALTH MAINTENANCE Final Result * (ABNORMAL) Hemoglobin A1c (02/18/2023) [facility] Hemoglobin A1C 9.1(A) <=6.5 % Blood Venous blood specimen / Unknown Result [facility] Provider LAB BLOOD ORDERABLES Ayaka l Result * Annual BMP Blood Test (12/10/2022) Pathologist [facility] Annual BMP Blood Test Abstracted Result [facility] Provider HEALTH MAINTENANCE Final Result * Hepatitis C Screening (12/10/2022) Pathologist [facility] Hepatitis C Screening Abstracted [facility] Provider HEALTH MAINTENANCE Final Result * (ABNORMAL) Lipid panel (12/10/2022) [facility] LDL/HDL Ratio 4 0 - 4 Triglycerides 90 0 - 150 mg/dL Cholesterol 163 0 - 200 mg/dL HDL 39(A) >=40 mg/dL LDL Cholesterol 106(A) 0 - 100 mg/dL Blood Venous blood specimen / Unknown Result [facility] Provider LAB BLOOD ORDERABLES Ayaka l Result * Cervical Cancer Screening: HPV (05/06/2022) [facility] Cervical Cancer Screening: HPV No interpreta tion,abstr acted [facility] Provider HEALTH MAINTENANCE Final Result * External Colonoscopy Report (09/06/2016 11:16 AM EDT) Anatomical Region Laterality Modality Endoscopy Result [facility] Provider GI~PROCEDURE ORDERABLES F inal Result from Last 3 Months or Most Recently Relevant to Health Maintenance Additional Health Concerns Infection Onset Date Last Indicated ESBL 05/02/2024 05/02/[address] [place] [id number] [place] Care Teams Business Support Coordinator Relationship Specialty Start Date End Date Physician, No Pcp PCP - General 08/29/24
[2025-03-07 14:16] VITALS: BMI 26.4
== END 2025-02-26 11:43 | disposition home or self-care (01) ==
LOC: HO.ENCR 10:59
PROVIDERS: PCP Physician Assistant; Visit Provider Dietitian, Registered
DX: E11.65 Type 2 diabetes mellitus with hyperglycemia (principal)

== ENCOUNTER → 2025-02-26 10:58 | Outpatient (BNVA) | payer MEDICARE, MEDICAID, SELFPAY | PROVIDERS: PCP Physician Assistant; Visit Provider Dietitian, Registered | DX: E11.65 Type 2 diabetes mellitus with hyperglycemia (principal); Z71.3 Dietary counseling and surveillance | CPT/HCPCS: 97802 ==

== ENCOUNTER 2025-04-02 09:27 | Outpatient (REF) | payer MEDICARE, MEDICAID, SELFPAY ==
--- NOTE | ~2025-04-02 | MM_ITS ---
EXAMINATION(S): 1. MM DIAGNOSTIC DIGITAL BREAST TOMOSYNTHESIS, LEFT 2. TARGETED ULTRASOUND OF THE LEFT BREAST CLINICAL INFORMATION: This is six month follow-up of focal asymmetry in the upper outer quadrant posterior depth without suspicious sonographic correlate. COMPARISON: Comparison made to multiple prior, most recent left diagnostic mammogram on October 01, 2024, and most remote June 05, 2012. TECHNIQUE: Digital breast tomosynthesis is performed in both the mediolateral oblique and craniocaudal views along with computer-aided detection (CAD). Synthesized 2D images are generated from the tomosynthesis. FINDINGS: BREAST COMPOSITION: The breasts are heterogeneously dense, which may obscure small masses. LEFT BREAST: Previously described focal asymmetry in the upper outer quadrant posterior depth is unchanged from September 2024. No suspicious sonographic correlate seen on the previous ultrasound evaluation. MM/MM tomosynthesis diagnostic LT IMPRESSION: LEFT BREAST: Focal asymmetry in the upper outer quadrant posterior depth, unchanged from September 2024. As previously described, this could represent normal dense fibroglandular breast tissue. A 6-month follow-up mammogram is recommended as bilateral diagnostic mammogram. ASSESSMENT: BI-RADS: Category 3: Probably benign RECOMMENDATION: 6 Month F/U Results were provided to the patient at time of visit by the technologist. Electronically signed by: Ghassan Archibald MD 04/02/2025 01:41 PM VIKTORIYA
--- OUTSIDE RECORDS SUMMARY | 2025-04-02 10:22 | XMS_ITS | Clinical Summary ---
Author Organization [facility] [address] [place] [address] [place] [address] BELÉN Hyman [phone] Phone Care Team Providers Care Order Runner Name Role Phone Physician, No Pcp Primary [...] without long-term current use of insulin ([facility] V24, [facility] V28) 12/24/2022 Immunizations Immunization Administration Dates Next [...] HISTORICAL TUBAL LIGATION BREAST REDUCTION Bilateral PROCEDURE: [place] BREAST REDUCTION HAND SURGERY 2010 Right PROCEDURE: HISTORICAL HAND SURGERY; COMMENT: work accident Medical History Medical History Date Comments HTN (hypertension) DX:HTN (hyper tension) Type 2 diabetes mellitus wit hout complications ([facility] V24, [facility] V28) DX:Type 2 luz betes mellitus without complications ([facility]) Psoriasis DX:Psoriasis Mixed hyperlipidemia DX:Mixed hy perlipidemia [...] Breast cancer risk category Low (<15%) Result [facility] Aleah Patino CNM IMG XR PROCEDURES Final Result * Urine Albumin Creatinine Ratio (02/18/2023) Pathologist [facility] Urine Albumin Creatinine Ratio Abstracted Result [facility] Provider HEALTH MAINTENANCE Final Result * (ABNORMAL) Hemoglobin A1c (02/18/2023) [facility] Hemoglobin A1C 9.1(A) <=6.5 % Blood Venous blood specimen / Unknown Result [facility] Provider LAB BLOOD ORDERABLES Ayaka l Result * Annual BMP Blood Test (12/10/2022) Pathologist [facility] Annual BMP Blood Test Abstracted Result [facility] Provider HEALTH MAINTENANCE Final Result * Hepatitis C Screening (12/10/2022) Pathologist [facility] Hepatitis C Screening Abstracted [facility] Provider HEALTH MAINTENANCE Final Result * (ABNORMAL) Lipid panel (12/10/2022) [facility] LDL/HDL Ratio 4 0 - 4 Triglycerides 90 0 - 150 mg/dL Cholesterol 163 0 - 200 mg/dL HDL 39(A) >=40 mg/dL LDL Cholesterol 106(A) 0 - 100 mg/dL Blood Venous blood specimen / Unknown Result [facility] Provider LAB BLOOD ORDERABLES Ayaka l Result * Cervical Cancer Screening: HPV (05/06/2022) [facility] Cervical Cancer Screening: HPV No interpreta tion,abstr acted [facility] Provider HEALTH MAINTENANCE Final Result * External Colonoscopy Report (09/06/2016 11:16 AM EDT) Anatomical Region Laterality Modality Endoscopy Result [facility] Provider GI~PROCEDURE ORDERABLES F inal Result from Last 3 Months or Most Recently Relevant to Health Maintenance Additional Health Concerns Infection Onset Date Last Indicated ESBL 05/02/2024 05/02/[address] [place] [id number] [place]ICA[place] Care Teams Order Runner Relationship Specialty Start Date End Date Physician, No Pcp PCP - General 08/29/24
== END 2025-04-02 09:28 | disposition home or self-care (01) ==
LOC: HO.MAMMO 09:27
PROVIDERS: PCP Physician Assistant; Visit Provider Physician Assistant
DX: N64.89 Other specified disorders of breast (principal)
CPT/HCPCS: 77061; 77065

== ENCOUNTER → 2025-04-02 09:30 | Outpatient (BNV) | payer MEDICARE, MEDICAID, SELFPAY | PROVIDERS: PCP Physician Assistant; Visit Provider Radiology Body Imaging | DX: R92.8 Other abnormal and inconclusive findings on diagnostic imaging of breast (principal) | CPT/HCPCS: 77065; G0279 ==

== ENCOUNTER 2025-04-27 07:02 | Outpatient (REF) | payer MEDICARE, MEDICAID, SELFPAY ==
--- OUTSIDE RECORDS SUMMARY | 2025-04-27 07:05 | XMS_ITS | Clinical Summary ---
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 Name Role Phone Physician, No Pcp Primary [...] complication, without long-term current use of insulin ([facility] V24, [facility] V28) 12/24/2022 Immunizations Immunization Administration Dates Next [...] HISTORICAL TUBAL LIGATION BREAST REDUCTION Bilateral PROCEDURE: [place] BREAST REDUCTION HAND SURGERY 2010 Right PROCEDURE: HISTORICAL HAND SURGERY; COMMENT: work accident Medical History Medical History Date Comments HTN (hypertension) DX:HTN (hyper tension) Type 2 diabetes mellitus wit hout complications ([facility] V24, [facility] V28) DX:Type 2 luz betes mellitus without complications ([facility]) Psoriasis DX:Psoriasis Mixed hyperlipidemia DX:Mixed hy [...] Breast cancer risk category Low (<15%) Result [facility] Aleah Patino CNM IMG XR PROCEDURES Final Result * Urine Albumin Creatinine Ratio (02/18/2023) Pathologist [facility] Urine Albumin Creatinine Ratio Abstracted Result [facility] Provider HEALTH MAINTENANCE Final Result * (ABNORMAL) Hemoglobin A1c (02/18/2023) [facility] Hemoglobin A1C 9.1(A) <=6.5 % Blood Venous blood specimen / Unknown Result [facility] Provider LAB BLOOD ORDERABLES Ayaka l Result * Annual BMP Blood Test (12/10/2022) Pathologist [facility] Annual BMP Blood Test Abstracted Result [facility] Provider HEALTH MAINTENANCE Final Result * Hepatitis C Screening (12/10/2022) Pathologist [facility] Hepatitis C Screening Abstracted [facility] Provider HEALTH MAINTENANCE Final Result * (ABNORMAL) Lipid panel (12/10/2022) [facility] LDL/HDL Ratio 4 0 - 4 Triglycerides 90 0 - 150 mg/dL Cholesterol 163 0 - 200 mg/dL HDL 39(A) >=40 mg/dL LDL Cholesterol 106(A) 0 - 100 mg/dL Blood Venous blood specimen / Unknown Result [facility] Provider LAB BLOOD ORDERABLES Ayaka l Result * Cervical Cancer Screening: HPV (05/06/2022) [facility] Cervical Cancer Screening: HPV No interpreta tion,abstr acted [facility] Provider HEALTH MAINTENANCE Final Result * External Colonoscopy Report (09/06/2016 11:16 AM EDT) Anatomical Region Laterality Modality Endoscopy Result [facility] Provider GI~PROCEDURE ORDERABLES F inal Result from Last 3 Months or Most Recently Relevant to Health Maintenance Additional Health Concerns Infection Onset Date Last Indicated ESBL 05/02/2024 05/02/[address] [place] [address] [place] Care Teams Honey Grader And Blender Relationship Specialty Start Date End Date Physician, No Pcp PCP - General 08/29/24
[2025-04-27 07:32] LABS: Hematocrit 38.2 % (37.0-47.0); Hemoglobin 12.3 g/dl (12.0-16.0); Mean Corpuscular HGB Conc 32.2 g/dl (31.0-35.0); Mean Corpuscular Hemoglobin 26.6 pg (27.0-33.0); Mean Corpuscular Volume 82.5 fL (80.0-98.0); NRBC Abs Auto 0.000 X10*3/uL (0.0-0.012); NRBC Pct Auto 0.0 /100WBC (0.0-0.2); Platelet Count 287 X10*3/uL (160-400); Red Blood Count 4.63 X10*6/uL (4.20-5.50); White Blood Count 8.9 X10*3/uL (4.8-10.8)
[2025-04-27 08:05] LABS: Alanine Aminotransferase 23 U/L (0-31); Albumin Level 4.4 g/dL (3.5-5.0); Alkaline Phosphatase 80 U/L (39-117); Anion Gap 12 (12-20); Aspartate Amino Transferase 23 U/L (5-31); Blood Urea Nitrogen 9 mg/dL (9-16); Calcium 9.2 mg/dL (8.4-10.2); Carbon Dioxide 28 mmol/L (22-29); Chloride 105 mmol/L (96-108); Cholesterol 121 mg/dL (<200); Estimated Glomerular Filt Rate > 60; HDL Cholesterol 32 mg/dL (>40); Potassium 4.1 mmol/L (3.3-5.1); Sodium 141 mmol/L (135-145); Total Protein 8.0 g/dL (6.5-8.0); Triglycerides 53 mg/dL (<150)
== END 2025-04-27 07:03 | disposition home or self-care (01) ==
LOC: HO.LAB 07:02
PROVIDERS: PCP Physician Assistant; Visit Provider Physician Assistant
DX: E11.65 Type 2 diabetes mellitus with hyperglycemia (principal); E78.5 Hyperlipidemia, unspecified
CPT/HCPCS: 36415; 80053; 80061; 85027

== ENCOUNTER 2025-04-30 10:53 | Outpatient (AMB) | payer MEDICARE, MEDICAID, SELFPAY ==
[2025-04-30 11:11] VITALS: BP 142/66; PULSE 82; RESP 18; O2SAT 98; BMI 26.4
--- NOTE | 2025-04-30 11:11 | MHC.PC.OV ---
Vital Signs 04/30/25 11:11 Height 5 ft 1 in Weight 139 lb 8 oz BMI 26.4 BP 142/66 H Blood Pressure Location Lt brachial Position Sitting Respiration 18 Pulse 82 Pulse Source Pulse Oximeter Temp Source Temporal Artery Scan Pulse Oximetry (%) 98 Oxygen Delivery Method Room Air Intake Visit Reasons: f/u DMII Elevator Attendant Required: No Accompanied by: Self / Same As Patient Allergies apple (APPLE) Allergy (Severe, Verified 04/30/25 11:32) ANAPHYLAXIS Penicillins (PENICILLINS) Allergy (Intermediate, Verified 04/30/25 11:32) HIVES Nuts Allergy (Intermediate, Uncoded 04/30/25 11:32) Itchy throat. Medication List - Last Reconciled 04/30/25 by David Hoang PA-C atorvastatin (Lipitor) 20 mg PO DAILY 90 days azelastine 0.05% 1 drp ophthalmic (eye) BID 30 days blood pressure monitor As directed blood sugar diagnostic (L[employer] GenomicsTouch Ultra Test strips) testing twice per day calcipotriene 0.005% topical calcipotriene-betamethasone 0.005-0.064 % (Enstilar) topical DAILY PRN clobetasol 0.05% topical epinephrine 0.3 mg (0.3 mL) IM Q10M PRN 30 days fluticasone propionate 50 mcg/actuation 1 spray intranasal DAILY 30 days glimepiride 1 mg PO DAILY 90 days ketoconazole 2% topical lancets (OneTouch Delica Plus Lancet) testing twice per day per day loratadine (Claritin) 10 mg PO DAILY 90 days losartan 50 mg PO DAILY 90 days metformin 1,000 mg PO BID 90 days pimecrolimus 1% appl topical BID [Sanitary wipes As directed] semaglutide (Ozempic) 0.5 mg (0.736 mL) subcut QWEEK 4 weeks Tobacco use date assessed: 04/30/25 Dental Screening Dental Screen Date: 02/18/25 Did you have a dental visit in the last 12 months?: Yes Did you have a dental problem in the last 6 months where you did not have access to dental care?: No Was dental information given to patient?: Patient has dentist HPI f/u DMII HPI Details Patient is a 60 year female here today for follow-up visit. Patient has a past medical history significant for hyperlipidemia , psoriasis and type 2 diabetes . Concern--> reports having episodes at night for gasping for air. Also has developed a painful swollen cuticle of a finger on her left hand over the last 3 weeks. Type 2 diabetes: Patient continues on Ozempic .5 mg weekly along with maximal dose of metformin. Most recent fasting blood sugar much improved. A1c is much improved from 9.1-7.5 .. Hypertension: Blood pressure slightly elevated today in office. She reports having high sodium food recently. She does monitor her blood pressure from time to time at home and reports systolic numbers at 130s .. Hyperlipidemia: Most recent lipid panel showing much improved total cholesterol and LDL. She has started cholesterol medication atorvastatin 20 mg which has been very helpful. Laboratory Tests 05/06/22 10/29/24 11/14/24 08:46 09:56 10:31 RBC 4.65 Creatinine 0.51 Fasting Glucose 205 H Hgb A1c (Clinic) 8.1 H LDL Cholesterol, C alc 141 148 H Cholesterol 204 H 02/18/25 04/27/25 11:33 07:13 RBC 4.63 Creatinine 0.52 Fasting Glucose 123 H Hgb A1c (Clinic) 9.1 H LDL Cholesterol, C alc 79 Cholesterol 121 PFSH Medical History Hypertension Type II diabetes mellitus Surgical History History of bilateral breast reduction surgery History of tubal ligation Family History Sister Colon cancer Social History Alcohol intake: never Patient Tobacco Use Status: Never used Tobacco e-Cigarette/Vaping Use: Never Used Second Hand Smoke Exposure: No service: No Current occupational status: disabled Cognitive needs: No Hearing needs: No Vision needs: No Questionnaire Thrive Questionnaire Date Thrive assessed: 04/30/25 I am a: Patient What is your living situation today?: I have a steady place to live Within the past 12 months, did the food you bought not last and you didn't have the money to get more?: Never true Within the past 12 months, did you worry whether your food would run out before you got money to buy more?: Never true Do you have trouble paying for medicines?: No Do you have trouble getting transportation to medical appointments?: No Do you have trouble paying your heating and electricity bill?: No Do you have trouble taking care of your child, family member or friend?: No Do you have trouble with day-to-day activities such as bathing, preparing meals, shopping, managing finances, etc.?: No Are you currently unemployed and looking for a job?: No Are you interested in more education?: No Please select the resources that you would like help with: None Currently or been in a relationship where the following occur: No concerns reported THRIVE Score: 0 ADELINE-7 AMB Questionnaire ADELINE-7 Date ADELINE - 7 assessed: 02/18/25 Source: Developed by Drs. Lasha Nixon, Beryl Hemphill, Dannie Logan and colleagues, with an educational guerita from [employer]. Review of Systems Const Denies headache(s) Eyes Denies loss of vision ENT Denies vertigo, Denies dizziness, Denies headache(s) and Denies sore throat Card Denies chest pain, Denies leg edema and Denies lightheadedness Resp Denies cough, Denies hemoptysis and Denies wheezing GI Denies abdominal pain, Denies melena, Denies constipation, Denies diarrhea and Denies vomiting Denies urinary frequency, Denies dysuria and Denies urinary urgency Musc Denies arthralgias, Denies joint swelling, Denies numbness and Denies tingling Neuro Denies Abnormal speech present, Denies behavioral changes, Denies vertigo, Denies dizziness, Denies headache(s), Denies loss of vision, Denies memory loss, Denies numbness and Denies tingling Psych Denies anxiety, Denies behavioral changes, Denies depression, Denies memory loss and Denies panic attacks Phill/Lymph Denies easy bleeding and Denies easy bruising Aller/Immun Denies wheezing Physical exam (Primary Care) Vital Signs: Last Vital Signs Pulse 82 04/30/25 11:11 Resp 18 04/30/25 11:11 BP 142/66 H 04/30/25 11:11 Pulse Ox 98 04/30/25 11:11 Oxygen Delivery Method Room Air 04/30/25 11:11 BMI result Body Mass Index 26.4 Tobacco/Smoking Status: Tobacco use Status Tobacco use date assessed 04/30/25 04/30/25 11:14 Patient Tobacco Use Status Never used Tobacco 04/30/25 11:14 e-Cigarette/Vaping Use Never Used 04/30/25 11:14 Thrive Assessment: Date of Thrive Assessment Date Thrive assessed 04/30/25 04/30/25 11:20 Currently or been in a relationship where the following occur: No concerns reported Const General: healthy appearing, no acute distress, alert and awake Nutritional Appearance: well nourished Orientation/consciousness: oriented to person, oriented to place and oriented to time HENMT Ears: TM's normal bilaterally General nose exam: Normal nasal mucous membranes and turbinates present Eyes Conjunctivae: conjunctivae normal Sclerae: sclerae normal Pupils: Equal, round and reactive pupils present Neck Neck: Yes no lymphadenopathy and Yes no JVD Thyroid: Thyroid normal Carotids: no bruits Resp Effort & Inspection: normal respiratory effort and not tachypneic Auscultation: no crackles, no rales, no rhonchi and no wheezes Cardio Rate: regular rate Rhythm: regular rhythm Heart sounds: no murmurs and normal S1 and S2 GI Palpation (GI): Soft to palpation, nontender, no hepatomegaly and no splenomegaly Auscultation: normal bowel sounds Skin General skin exam: no rashes or lesions noted and dry skin Neuro General: oriented to person, oriented to place and oriented to time Cranial nerves: Yes Equal, round and reactive pupils present Speech: No Abnormal speech present Gait exam (Neuro): Normal gait present Motor exam (neuro): no tremor noted Extrem Right upper extremity: full ROM Left upper extremity: full ROM Hand/finger images:  1. SLIGHTLY ERYTHEMATOUS AND EDEMATOUS CUTICLE OF THE DIGITS OF THE LEFT HAND. 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 insulin use: without remote computer terminal operator use Diabetes mellitus complication status: with hyperglycemia Mixed hyperlipidemia E78.2 Hyperlipidemia type: mixed hyperlipidemia Primary hypertension I10 Hypertension type: primary hypertension Paronychia of finger of left hand L03.012 KRISTIE (obstructive sleep apnea) G47.33 Assessment & Plan Assessment & Plan (1) Type II diabetes mellitus: Code(s): E11.9 - Type 2 diabetes mellitus without complications Category: Medical Qualifiers: Diabetes mellitus remote computer terminal operator insulin use: without remote computer terminal operator use Diabetes mellitus complication status: with hyperglycemia Qualified Code(s): E11.65 - Type 2 diabetes mellitus with hyperglycemia Plan: Patient's type 2 diabetes suboptimally controlled. Today's A1c is 7.5 from 9.1. Continues with Ozempic 0.5 mg weekly, she does report feeling a bit of an upset stomach and vomits the day of and after her GLP 1 injection. . She will work on dietary modifications. . (2) HLD (hyperlipidemia): Code(s): E78.5 - Hyperlipidemia, unspecified Category: Medical Qualifiers: Hyperlipidemia type: mixed hyperlipidemia Qualified Code(s): E78.2 - Mixed hyperlipidemia Plan: Patient's recent lipid panel showing much improved total cholesterol and LDL. She continues on atorvastatin 20 mg with good effect. LDL goal is to be below 100. . (3) Hypertension: Code(s): I10 - Essential (primary) hypertension Category: Medical Qualifiers: Hypertension type: primary hypertension Qualified Code(s): I10 - Essential (primary) hypertension Plan: Patient's blood pressure slightly elevated today in office, she does report having salty food recently. She continues with losartan 50 mg. She does monitor her blood pressure from time to time at home reports 130 systolic. Will continue losartan 50 mg with goal blood pressure to be below 130/80 (4) Paronychia of finger of left hand: Code(s): L03.012 - Cellulitis of left finger Category: Medical Plan: Patient has a swollen painful paronychia PI noted over finger on left hand. Will supply patient with antibiotic and referred to orthopedics for possible need for incision and drainage (5) KRISTIE (obstructive sleep apnea): Code(s): G47.33 - Obstructive sleep apnea (adult) (pediatric) Category: Medical Plan: Patient has a moderate risk for obstructive sleep apnea, she does report having gasping for air episodes during the night a few times a month. Will send for home sleep study to [facility] for obstructive sleep apnea Orders: Orders Complete Blood Count no Diff Today E11.65 - Type 2 diabetes mellitus with hyperglycemia Microalbumin, Random (w Creat) Today I10 - Essential (primary) hypertension Lipid Panel Today E78.2 - Mixed hyperlipidemia AMB Hemoglobin A1c Today E11.65 - Type 2 diabetes mellitus with hyperglycemia Comprehensive [place]. Panel Fast Today E11.65 - Type 2 diabetes mellitus with hyperglycemia Hemoglobin A1c Today E11.65 - Type 2 diabetes mellitus with hyperglycemia RT home sleep study Today G47.33 - Obstructive sleep apnea (adult) (pediatric) Referrals Ophthalmology Referral E11.65 - Type 2 diabetes mellitus with hyperglycemia Orthopedics Referral L03.012 - Cellulitis of left finger Medications: New ondansetron 8 mg PO Q12H PRN 20 tabs 0RF nausea and vomiting 10 days doxycycline monohydrate 100 mg PO BID 14 caps 0RF 7 days L03.012 - Cellulitis of left finger
== END 2025-04-30 11:55 | disposition home or self-care (01) ==
LOC: HO.HMCH 10:54
PROVIDERS: PCP Physician Assistant; Visit Provider Physician Assistant
DX: E11.65 Type 2 diabetes mellitus with hyperglycemia (principal); E78.2 Mixed hyperlipidemia; I10 Essential (primary) hypertension; L03.012 Cellulitis of left finger; G47.33 Obstructive sleep apnea (adult) (pediatric)

== ENCOUNTER → 2025-04-30 10:53 | Outpatient (BNVA) | payer MEDICARE, MEDICAID, SELFPAY | PROVIDERS: PCP Physician Assistant; Visit Provider Physician Assistant | DX: E11.65 Type 2 diabetes mellitus with hyperglycemia (principal); E78.2 Mixed hyperlipidemia; I10 Essential (primary) hypertension; L03.012 Cellulitis of left finger; G47.33 Obstructive sleep apnea (adult) (pediatric) | CPT/HCPCS: 99212 ==

== ENCOUNTER 2025-05-03 10:07 | Outpatient (AMB) | payer MEDICARE, MEDICAID, SELFPAY ==
--- NOTE | 2025-05-03 10:23 | A.OFFVIS_ITS ---
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 States about 4 weeks ago she noticed a dent in her nail, no injury she recall. Now she has a blister like pocket full of fluid under her nail bed. States this is causing her pain and she is afraid of this turning into a bad infection. She is diabetic and has concerns of healing. 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 States about 4 weeks ago she noticed a dent in her nail, no injury she recall. Now she has a blister like pocket full of fluid under her nail bed. States this is causing her pain and she is afraid of this turning into a bad infection. She is diabetic and has concerns of healing. Due to this, the patient expresses concern with any operative or invasive intervention, and would like to move forward with less invasive treatment measures 1st. [facility] Medical History Hypertension Type II diabetes mellitus Surgical History History of bilateral breast reduction surgery History of tubal ligation Family History Sister Colon cancer Social History Alcohol intake: never Patient Tobacco Use Status: Never used Tobacco e-Cigarette/Vaping Use: Never Used Second Hand Smoke Exposure: No service: No Current occupational status: disabled Cognitive needs: No Hearing needs: No Vision needs: No Review of Systems Const All systems reviewed & are unremarkable except as noted in HPI and below Physical Exam Vital Signs: BMI result Body Mass Index 26.3 Extrem Other: Patient is alert, oriented, and in no acute distress. Neuro: Normal sensation of the tips of all digits of the left hand at this time Vascular: Cap refill brisk Pain: Tenderness to palpation about small area of redness and swelling over the eponychial fold of the left middle finger No pain with range of motion of the left hand ROM: Patient is able to make a closed fist and extend all digits of the left hand fully and without difficulty Skin: No lacerations or abrasions. General: There is noted to be what appears to be a paronychia over the eponychial fold of the left middle finger Psych: Appears grossly normal Affect normal Attitude cooperative Assessment & Plan Assessment & Plan (1) Paronychia of finger of left hand: Code(s): L03.012 - Cellulitis of left finger Category: Medical Plan 1. Left middle finger paronychia Patient is educated about this condition Patient is educated about the typical treatment and recovery course Continue antibiotics Patient should continue with hot water soaks with a small amount of peroxide to encourage drainage of paronychia Patient is offered needle drainage at this time, however the patient states she would like to try conservative measures 1st, as she is concerned about her capacity to heal due to diabetes Therefore, patient will follow-up in 1 week, and if she is still experiencing symptoms at that point, we will perform needle drainage Patient understands this and is amenable to this plan Coding Level of Care Code New Pt Level 3 (63242) Diagnoses Paronychia of finger of left hand L03.012
[2025-05-03 10:24] VITALS: BMI 26.3
== END 2025-05-03 10:39 | disposition home or self-care (01) ==
LOC: HO.HOS 10:07
PROVIDERS: PCP Physician Assistant
DX: L03.012 Cellulitis of left finger (principal)
CPT/HCPCS: 99203

== ENCOUNTER → 2025-05-03 10:07 | Outpatient (BNVA) | payer MEDICARE, MEDICAID, SELFPAY | PROVIDERS: PCP Physician Assistant | DX: L03.012 Cellulitis of left finger (principal); E11.9 Type 2 diabetes mellitus without complications | CPT/HCPCS: 99202 ==

== ENCOUNTER 2025-05-08 08:59 | Outpatient (AMB) | payer MEDICARE, MEDICAID, SELFPAY ==
--- NOTE | 2025-05-08 09:03 | A.OFFVIS_ITS ---
Intake Visit Reasons: OV-Left Middle Finger Paronychia Intake Note: Stephenie is a 60 year old left hand dominant female who presents today for Follow Up of her Left Middle Finger Paronychia. At her last visit she was advised to continue antibiotics and hot water soaks with a small amount of peroxide. She was offered a needle drainage, however she stated she would like to try conservative measures 1st, as she was concerned about her capacity to heal due to diabetes. At today's visit she states that the left middle finger is still sore to the touch with redness/swelling. She feels that the hot water with peroxide is starting to show improvements and would like to continue. Patient noted that she is concerned to draining her finger due to her going on a cruise next Tuesday and returning on the following Tuesday. Community Engagement Representative Required: Yes Community Engagement Representative Services: Community Engagement Representative Offered & Declined Allergies apple (APPLE) Allergy (Severe, Verified 05/03/25 10:33) ANAPHYLAXIS Penicillins (PENICILLINS) Allergy (Intermediate, Verified 05/03/25 10:33) HIVES Nuts Allergy (Intermediate, Uncoded 05/03/25 10:33) Itchy throat. HPI HPI OV-Left Middle Finger Paronychia: Details: Stephenie is a 60 year old left hand dominant female who presents today for Follow Up of her Left Middle Finger Paronychia. At her last visit she was advised to continue antibiotics and hot water soaks with a small amount of peroxide. She was offered a needle drainage, however she stated she would like to try conservative measures 1st, as she was concerned about her capacity to heal due to diabetes. At today's visit she states that the left middle finger is still sore to the touch occasionally with redness/swelling, although all 3 of the symptoms have improved.. She feels that the hot water with peroxide is starting to show improvements and would like to continue. Patient does state that she did experience spontaneous drainage while soaking the left middle finger. Patient noted that she is concerned to draining her finger due to her going on a cruise next Tuesday and returning on the following Tuesday. [facility] Medical History Hypertension Type II diabetes mellitus Surgical History History of bilateral breast reduction surgery History of tubal ligation Family History Sister Colon cancer Social History Alcohol intake: never Patient Tobacco Use Status: Never used Tobacco e-Cigarette/Vaping Use: Never Used Second Hand Smoke Exposure: No service: No Current occupational status: disabled Cognitive needs: No Hearing needs: No Vision needs: No Physical Exam Extrem Other: Patient is alert, oriented, and in no acute distress. Neuro: Normal sensation of the tips of all digits of the left hand at this time Vascular: Cap refill brisk Pain: Minimal Tenderness to palpation about eponychial fold of the left middle finger Some hyperemia noted in his area, no further redness No pain with range of motion of the left hand ROM: Patient is able to make a closed fist and extend all digits of the left hand fully and without difficulty Skin: No lacerations or abrasions. General: There is a small scab noted where the area of fluid and purulence was last week on previously noted paronychia, and this appears to have drained fully Psych: Appears grossly normal Affect normal Attitude cooperative Assessment & Plan Assessment & Plan (1) Paronychia of finger of left hand: Code(s): L03.012 - Cellulitis of left finger Category: Medical Plan 1. Left middle finger paronychia Has spontaneously drained since previous evaluation Patient is educated about this condition Patient is educated about the typical treatment and recovery course Continue antibiotics Patient should continue with hot water soaks with a small amount of peroxide to encourage drainage of paronychia No needle drainage necessary, as there is no further pockets of fluid or purulence Patient should call for re-evaluation or refill of antibiotics if she notices redness or fluid returning Patient understands this and is amenable to this plan Follow-up as needed Coding Level of Care Code Est Pt Level 3 (87692) Diagnoses Paronychia of finger of left hand L03.012
== END 2025-05-08 09:41 | disposition home or self-care (01) ==
LOC: HO.HOS 09:00
PROVIDERS: PCP Physician Assistant
DX: L03.012 Cellulitis of left finger (principal)
CPT/HCPCS: 99213

== ENCOUNTER → 2025-05-08 08:59 | Outpatient (BNVA) | payer MEDICARE, MEDICAID, SELFPAY | PROVIDERS: PCP Physician Assistant | DX: L03.012 Cellulitis of left finger (principal); E11.9 Type 2 diabetes mellitus without complications | CPT/HCPCS: 99212 ==